=== PATIENT | male | born 1955 | race Caucasian/White ===

== ENCOUNTER → 2022-05-05 | Outpatient (CLI) | payer OTHER, MEDICARE, SELFPAY ==
[2022-05-05 10:53] LABS: Erythrocyte Sedimentation Rate 41 mm/hr (0-20)
[2022-05-05 10:55] LABS: Absolute Lymphocyte Count 3.01 X10^3/uL (0.83-4.51); Absolute Neutrophil Count 4.4 X10^3/uL (2.0-7.7); Basophil# 0.05 X10^3/uL; Basophil% 0.6 % (0-1); Eosinophil# 0.44 X10^3/uL; Eosinophils% 4.9 % (0-5); Hemoglobin 10.8 g/dL (13.0-16.5); Lymphocyte # 3.01 X10^3/ul (0.83-4.51); Lymphocyte % 33.2 % (19-41); Mean Corpuscular Hgb 22.8 pg (27.0-32.0); Mean Corpuscular Volume 76.1 fL (80-94); Mean Platelet Vol. 9.3 fl (6.2-12.0); Monocyte# 1.16 X10^3/uL; Monocyte% 12.8 % (0-10); NRBC Flagged by Analyzer 0 % (0-5); Neutrophil # 4.38 X10^3/uL (2.7-7.7); Neutrophil % 48.3 % (47-70); Platelet Count 429 K/mm3 (150-450); RBC Distribution Width CV 18.3 % (11.6-14.6); RBC Distribution Width SD 49.8 fl (35.1-43.9); Red Blood Count 4.73 M/mm3 (4.6-6.2); White Blood Count 9.1 K/mm3 (4.4-11.0)
[2022-05-05 11:11] LABS: ALB/GLOB Ratio 0.7 RATIO (0.9-2.4); AST(SGOT) 9 U/L (15-37); Alanine Aminotransfer ALT/SGPT 15 U/L (16-61); Albumin, Serum 3.2 g/dL (3.2-5.0); Alkaline Phosphatase 91 U/L (45-117); Anion Gap 6 (5-15); BUN 13 mg/dL (7-18); BUN/Creat Ratio 10.9 RATIO (10-20); Calcium,Total 9.1 mg/dL (8.5-10.1); Chloride 108 mmol/L (98-107); Creatinine, Serum 1.19 mg/dL (0.70-1.30); EST Glomerular Filtration Rate 65 mL/min (>60); Est Glom Filt Rate - Afr Amer 79 mL/min (>60); Globulin 4.9 g/dL (2.2-4.2); Glucose 101 mg/dL (74-106); LDH 161 U/L (87-241); Protein, Total 8.1 g/dL (6.4-8.2); Sodium Level 138 mmol/L (136-145)
[2022-05-08 16:08] LABS: Endomysial Antibody IgA Negative (Negative)
[2022-05-08 17:23] LABS: Immunoglobulin A 305 mg/dL (61-437); t-Transglutaminase IgA <2 U/mL (0-3)
[2022-05-09 16:09] LABS: Albumin 3.2 g/dL (2.9-4.4); Alpha-1-Globulins 0.3 g/dL (0.0-0.4); Alpha-2-Globulins 0.9 g/dL (0.4-1.0); Cytoplasmic Ab (C-ANCA) >1:640 titer (Neg:<1:20); Gamma Globulin 1.6 g/dL (0.4-1.8); Immunoglobulin A 313 mg/dL (61-437); Immunoglobulin G 1537 mg/dL (603-1613); Immunoglobulin M 93 mg/dL (20-172); PROEL- TOTAL PROTEIN 7.3 g/dL (6.0-8.5)
[2022-05-09 17:48] LABS: IMMUNOFIXATION RESULT,S Comment: (.)
[2022-05-09 17:49] LABS: CMV Acute Antibody IgM < 30.0 AU/mL (0.0-29.9); CMV Antibody IgG > 10.00 U/mL (0.00-0.59); Immunoglobulin E 20 IU/mL (6-495); Perinuclear Ab (P-ANCA) <1:20 titer (Neg:<1:20)
[2022-05-09 21:38] LABS: Calprotectin, Stool 431 ug/g (0-120)
[2022-05-11 16:45] LABS: Giardia Lamblia, Stool EIA Negative (Negative); Pancreatic Elastase, Fecal 455 (>200)
== END | disposition home or self-care (01) ==
PROVIDERS: Referring Provider Internal Medicine Gastroenterology; Visit Provider Internal Medicine Gastroenterology
DX: K51.90 Ulcerative colitis, unspecified, without complications (principal); R19.7 Diarrhea, unspecified; K58.9 Irritable bowel syndrome, unspecified
CPT/HCPCS: 36415; 80053; 82653; 82784; 82785; 83516; 83605; 83615; 83630; 83993; 84165; 85025; 85652; 86140; 86255; 86256; 86334; 86644; 86645; 87177; 87209; 87329; 87493; 87506

== ENCOUNTER 2022-05-10 00:05 | Inpatient (IN) | payer OTHER, MEDICARE, SELFPAY ==
[2022-05-10] VITALS (11 sets, daily range): BP systolic 90–113; BP diastolic 53–76; PULSE 66–94; RESP 15–18; TEMP 36.6–37.7; O2SAT 95–98; BMI 25.6; BMI 25.9
[2022-05-10 01:01] LABS: Absolute Lymphocyte Count 3.13 X10^3/uL (0.83-4.51); Absolute Neutrophil Count 5.4 X10^3/uL (2.0-7.7); Basophil# 0.04 X10^3/uL; Basophil% 0.4 % (0-1); Eosinophil# 0.06 X10^3/uL; Eosinophils% 0.6 % (0-5); Hematocrit 33.1 % (40-54); Hemoglobin 9.7 g/dL (13.0-16.5); Lymphocyte # 3.13 X10^3/ul (0.83-4.51); Lymphocyte % 31.7 % (19-41); Mean Corp Hgb Conc 29.3 g/dL (32-36); Mean Corpuscular Hgb 22.3 pg (27.0-32.0); Mean Corpuscular Volume 76.1 fL (80-94); Mean Platelet Vol. 9.6 fl (6.2-12.0); Monocyte# 1.25 X10^3/uL; Monocyte% 12.7 % (0-10); NRBC Flagged by Analyzer 0 % (0-5); Neutrophil # 5.37 X10^3/uL (2.7-7.7); Neutrophil % 54.4 % (47-70); Platelet Count 359 K/mm3 (150-450); RBC Distribution Width CV 17.9 % (11.6-14.6); RBC Distribution Width SD 49.3 fl (35.1-43.9); Red Blood Count 4.35 M/mm3 (4.6-6.2); White Blood Count 9.9 K/mm3 (4.4-11.0)
[2022-05-10] MEDS: Morphine 4 MG/ML Syringe IV (01:12)
[2022-05-10] MEDS: Ondansetron 4 MG/2 ML Vial IV (01:12)
[2022-05-10] MEDS: 0.9% Normal Saline 1,000 ML 1000 ML IV (01:12)
--- NOTE | 2022-05-10 01:14 | EDS_ITS ---
HPI History of Present Illness Chief Complaint: General Illness Informant: patient and spouse/S.O. Narrative Narrative: Patient is a 67-year-old male with history of ulcerative colitis, follows with Dr. Morales, presenting with worsening abdominal pain. He states the pain is in his right lower quadrant. He does have history of prior appendectomy. He has had associated nausea and countless episodes of diarrhea. Denies any significant blood in his stool. Notes that he has having decreased urine output. Had a fever this evening and 1-1.9 per his . Is complaining of cramping abdominal pain. Did not take anything for pain prior to arrival. States this feels like UC flare but more severe. States he has been having blood in his stool. States he was put on new medications by his GI doctor 2 days ago but cannot recall the name.Patient had stool studies on 05/05 which was negative for C. difficile PCR, as well as enteric pathogen panel. He did have positive fecal white blood cell lactoferrin. It appears that patient was started on hydrocortisone enema as well as mesalamine [facility] Medical History (Updated 05/10/22 @ 06:[address] Isis Chavez, DO) Anxiety Benign prostatic hyperplasia CAD (coronary artery disease) Calcification of left carotid artery Cellulitis of right axilla Chronic colitis Chronic left shoulder pain Deafness in left ear Depression Former smoker GERD (gastroesophageal reflux disease) Gout Hyperlipidemia Hypertension Left flank mass Myocardial infarct Opioid use MICKEY (obstructive sleep apnea) Pain in right hand Polyneuropathy, unspecified Primary insomnia Ulcerative (chronic) pancolitis without complications Urinary frequency Xerosis of skin Home Medications aspirin 81 mg tablet,delayed release 81 mg PO DAILY 04/18/22 [History Last Taken Unknown] cholecalciferol (vitamin D3) 25 mcg (1,000 unit) capsule 25 mcg PO DAILY Check with primary doctor 04/18/22 [History Last Taken Unknown] clopidogrel 75 mg tablet 75 mg PO DAILY 04/18/22 [History Last Taken Unknown] diazepam 5 mg tablet 5 mg PO .QID PRN Anxiety 04/18/22 [History Last Taken Unknown] indomethacin 50 mg capsule 50 mg PO BID PRN Gout 04/18/22 [History Last Taken Unknown] mesalamine 1.2 gram tablet,delayed release (Lialda) 2.4 g PO BID Check with primary doctor 04/18/22 [History Last Taken Unknown] omeprazole 40 mg capsule,delayed release 40 mg PO DAILY PRN STOMACH ACID 04/18/22 [History Last Taken Unknown] rosuvastatin 5 mg tablet 5 mg PO DAILY Check with primary doctor 04/18/22 [History Last Taken Unknown] zolpidem 10 mg tablet 10 mg PO QHS Check with primary doctor 04/18/22 [History Last Taken Unknown] diphenoxylate-atropine 2.5 mg-0.025 mg tablet (Lomotil) 1 tab PO BID PRN diarrhea #60 tabs 05/05/22 [Rx Last Taken Unknown] hydrocortisone 100 mg/60 mL enema 100 mg [place] QHS Check with primary doctor 05/10/22 [History Last Taken Unknown] Allergy/AdvReac Type Severity Reaction Status Date / Time metronidazole Allergy Intermediate hives Verified 05/10/22 00:11 tetracycline Allergy Intermediate unk Verified 05/10/22 00:11 tramadol Allergy Intermediate Shortness Verified 05/10/22 00:11 of breath Family History (Updated 05/10/22 @ 03:[address] Ava Ledezma MD) Mother Heart disease Father IBD (inflammatory bowel disease) Surgical History (Updated 05/10/22 @ 05:21 by Elli Johnston) History of appendectomy History of coronary artery bypass graft x 3 History of coronary artery stent placement Social History (Updated 05/10/22 @ 03:[address] Ava Ledezma MD) household members: spouse Smoking Status: Former smoker how long ago did patient quit smoking: Quit ~ 15 years prior, smoked 1 ppd since teen until quit. alcohol intake: current alcohol intake frequency: a few times a month substance use type: does not use ROS ROS ED Constitutional Constitutional ED: Reports chills and fever(s) Eyes Eyes: Denies change in vision ENT ENT ED: Denies rhinorrhea or sore throat Cardiovascular Cardiovascular: Denies chest pain Respiratory/Chest Respiratory/Chest: Denies cough Gastrointestinal Gastrointestinal: Reports abdominal pain, diarrhea, nausea and other Details: blood in stool ; Denies vomiting Genitourinary Genitourinary ED: Denies dysuria or hematuria Musculoskeletal Musculoskeletal: Denies arthralgias or myalgias Integumentary Denies rash Neurologic Neurologic: Denies headache(s) or weakness Psychiatric Psychiatric: Denies anxiety Hematologic/Lymphatic Hematologic/Lymphatic: Denies easy bleeding or easy bruising EXAM Physical Exam Const Vital Signs: 05/10/22 00:06 05/10/22 00:14 05/10/22 00:11 Temperature 99.8 F H 98.1 F Temperature Source Temporal Temporal Pulse Rate 94 94 Respiratory Rate 16 16 Blood Pressure 96/57 L 96/57 L Blood Pressure Mean 70 70 Pulse Ox 98 98 Oxygen Delivery Method Room Air Room Air 05/10/22 02:05 Temperature Temperature Source Pulse Rate 78 Respiratory Rate 15 Blood Pressure 100/60 Blood Pressure Mean 73 Pulse Ox 97 Oxygen Delivery Method Room Air Positive well nourished and well developed Constitutional Narrative: Uncomfortable appearing General Appearance ED: well developed and pallor HEENT Reports dry mucous membranes Mouth ED: Yes dry mucous membranes Mouth: dry mucous membranes Eyes PERRL Neck supple Chest Wall inspection of chest normal Resp normal respiratory effort and clear to auscultation bilaterally Cardio regular rate, regular rhythm and no murmurs GI non-distended GI Narrative: Tenderness in the right lower quadrant Auscultation: hypoactive bowel sounds Back/Spine no CVA tenderness Extremity normal to inspection Neuro oriented x3 Sensorium / Orientation: alert Motor Exam: Negative for general weakness Psych mental status grossly normal Skin no rashes or lesions noted and no wounds General Skin Exam: pallor MDM MDM MDM Narrative Medical decision making narrative: Patient evaluated for worsening diarrhea, right lower quadrant pain and nausea. Patient has an extensive history of ulcerative colitis and follows with Dr. Morales. He is not currently on any Biologics. Presentation is consistent with an ulcerative colitis flare. Patient is given 2 doses of IV pain medication in the ER as well as some IV Zofran. He is given IV fluids as he does have soft blood pressures. Hemoglobin is low at 9.7 and CBC is consistent with a microcytic anemia. His white blood cell count is normal. Patient does have a one-point drop in his hemoglobin compared to 3 days ago. He states he is having blood in his stool. CMP is stable and his lactate is normal at 1.2. Lipase is normal. Urinalysis not consistent with infection. Given his lack of white count and extensive history of ulcerative colitis deferred imaging until after d iscussion with his general service technician, Dr. Morales. He do not feel that emergent imaging was indicated at this time. Patient is given IV hydrocortisone for presumed UC flare in the emergency room and then started scheduled every 8 hours per recommendation of GI. Patient is admitted to hospital service with GI and consult. Patient and are agreeable this plan of care. While patient does maintain low blood pressures in the emergency room he has good mentation, no significant bleeding and no corresponding tachycardia. Hospitalist is made aware. Lab Data Attestation: I reviewed the patient's lab results. Labs: Laboratory Results - last 24 hr 05/10/22 05/10/22 05/10/22 00:50 00:50 00:50 WBC 9.9 RBC 4.35 L Hgb 9.7 L Hct 33.1 L MCV 76.1 L MCH 22.3 L MCHC 29.3 L RDW Std Deviation 49.3 H RDW Coeff of Miguel 17.9 H Plt Count 359 MPV 9.6 Immature Gran % (Auto) 0.200 Neut % (Auto) 54.4 Lymph % (Auto) 31.7 [place] % (Auto) 12.7 H Eos % (Auto) 0.6 Baso % (Auto) 0.4 Absolute Neuts (auto) 5.4 Absolute Lymphs (auto) 3.13 Nucleated RBC % 0 ESR Sodium 138 Potassium 3.9 Chloride 106 Carbon Dioxide 26.0 Anion Gap 6 BUN 13 Creatinine 1.22 Estim Creat Clear Calc 57.62 Est GFR (MDRD) Af Amer 76 Est GFR (MDRD) Non-Af 63 BUN/Creatinine Ratio 10.7 Glucose 113 H Lactic Acid 1.2 Calcium 9.6 Total Bilirubin 0.20 AST 10 L ALT 14 L Alkaline Phosphatase 80 C-React Prot Ext Range Total Protein 7.4 Albumin 3.0 L Globulin 4.4 H Albumin/Globulin Ratio 0.7 L Lipase 84 Urine Color Urine Clarity Urine pH Ur Specific [place] Urine Protein Urine Glucose (UA) Urine Ketones Urine Occult Blood Urine Nitrite Urine Bilirubin Urine Urobilinogen Ur Leukocyte Esterase Urine RBC Urine WBC Ur Squamous Epith Cells Urine Bacteria Urine Mucus 05/10/22 05/10/22 05/10/22 00:50 00:50 01:05 WBC RBC Hgb Hct MCV MCH MCHC RDW Std Deviation RDW Coeff of Miguel Plt Count MPV Immature Gran % (Auto) Neut % (Auto) Lymph % (Auto) [place] % (Auto) Eos % (Auto) Baso % (Auto) Absolute Neuts (auto) Absolute Lymphs (auto) Nucleated RBC % ESR 48 H Sodium Potassium Chloride Carbon Dioxide Anion Gap BUN Creatinine Estim Creat Clear Calc Est GFR (MDRD) Af Amer Est GFR (MDRD) Non-Af BUN/Creatinine Ratio Glucose Lactic Acid Calcium Total Bilirubin AST ALT Alkaline Phosphatase C-React Prot Ext Range 49.00 H Total Protein Albumin Globulin Albumin/Globulin Ratio Lipase Urine Color Yellow Urine Clarity Clear Urine pH 5.0 Ur Specific [place] 1.020 Urine Protein Negative Urine Glucose (UA) Normal Urine Ketones Negative Urine Occult Blood Negative Urine Nitrite Negative Urine Bilirubin Negative Urine Urobilinogen Normal Ur Leukocyte Esterase Negative Urine RBC 0 SEEN Urine WBC 0 SEEN Ur Squamous Epith Cells 0 SEEN Urine Bacteria 0 SEEN Urine Mucus 0 SEEN Discharge Plan Dx/Rx/DC Orders Clinical Impression: Ulcerative colitis, Anemia Disposition Disposition: Acute Care Hospital [facility]
[2022-05-10 01:18] LABS: ALB/GLOB Ratio 0.7 RATIO (0.9-2.4); AST(SGOT) 10 U/L (15-37); Alanine Aminotransfer ALT/SGPT 14 U/L (16-61); Alkaline Phosphatase 80 U/L (45-117); Anion Gap 6 (5-15); BUN 13 mg/dL (7-18); BUN/Creat Ratio 10.7 RATIO (10-20); Calcium,Total 9.6 mg/dL (8.5-10.1); Chloride 106 mmol/L (98-107); Creatinine, Serum 1.22 mg/dL (0.70-1.30); EST Glomerular Filtration Rate 63 mL/min (>60); Est Glom Filt Rate - Afr Amer 76 mL/min (>60); Estimated Creatinine Clearance 57.62 ml/min; Globulin 4.4 g/dL (2.2-4.2); Glucose 113 mg/dL (74-106); Lipase 84 U/L (73-393); Potassium 3.9 mmol/L (3.5-5.1); Protein, Total 7.4 g/dL (6.4-8.2); Sodium Level 138 mmol/L (136-145)
[2022-05-10 01:19] LABS: Bacteria 0 SEEN /hpf (None Seen); Mucous, Urine 0 SEEN /hpf (<or=2+); Red Blood Cells-Urine 0 SEEN /hpf (0-5); Squamous Epithelial Cells - UA 0 SEEN /hpf (0-5); White Blood Cells 0 SEEN /hpf (0-5)
[2022-05-10 01:20] LABS: Color, Urine Yellow (Yellow); Glucose, Dipstick Normal (Normal); Ketone-Dipstick Negative (Negative); Leukocyte Esterase-Dipstick Negative /ul (Negative); Nitrite-Dipstick Negative (Negative); Occult Blood-Urine Negative /ul (Negative); Protein-Dipstick Negative (Negative); Urine Bilirubin Dipstick Negative (Negative); Urine Clarity Clear (Clear); Urine Urobilinogen Normal (Normal)
[2022-05-10 01:25] LABS: Lactic Acid 1.2 mmol/L (0.4-1.9)
[2022-05-10] MEDS: HYDROmorphone 0.5 MG/0.5 ML SYRINGE IV ×4 (02:20→20:41)
--- NOTE | 2022-05-10 02:53 | HP.PCM.HOS_ITS ---
HPI - General General Date of Admission: 05/10/22 Date of Service: 05/10/22 Chief Complaint: Abdominal pain. HPI Narrative The patient is a 67 y/o M w/ PMHx: Chronic anemia, CAD s/p CABG x 3, HTN, HLD, Anxiety, GERD, BPH, Gout, MICKEY, Ulcerative Colitis following w/ Dr. Morales with recent + LF WBC stool study, negative cdiff, negative enteric pathogens with recent start on mesalamine and hydrocortisone enemas with initially improvement in his symptoms for at least the last couple days however on a.m. on day prior to presentation he had onset of worsening symptoms presenting to the [facility] ED on 05/10/22 with worsening cramping abdominal pain, rated 10/10 in severity, worse in the RLQ but also more notable RUQ also, similar to prior UC flare but notes more severe than prior with reported blood in his stools with nausea without emesis and elevated temperature at home prompting ED evaluation. Patient notes worsening pain with cramping when he has onset diarrhea and some temporary improvement following diarrheal episodes. He reports have associated fevers, chills. Work-up in the ED included T99.8 With most recent repeat 98.1, heart ra te 94, BP 96/57, respiratory rate 16, 98% on room air, CBC with WC 9.9, hemoglobin 9.7, platelets 359 without marked shift, CMP with glucose 113, lactic acid 1.2 otherwise hepatic profile unremarkable, lipase 84, urinalysis unremarkable CBC with WC 7.1, hemoglobin 7.2 CT of the brain with no acute i ntracranial hemorrhage or depressed calvarial fracture. In the ED patient administered Zofran, morphine and normal saline bolus as well as Hydrocortisone 100 mg IV x 1 per GI request. GI recommended against repeat CT imaging at this time pending their evaluation. [facility] Medical History Anxiety Benign prostatic hyperplasia CAD (coronary artery disease) Calcification of left carotid artery Cellulitis of right axilla Chronic colitis Chronic left shoulder pain GERD (gastroesophageal reflux disease) Gout Hyperlipidemia Hypertension Left flank mass Opioid use MICKEY (obstructive sleep apnea) Pain in right hand Polyneuropathy, unspecified Primary insomnia Ulcerative (chronic) pancolitis without complications Urinary frequency Xerosis of skin Home Medications aspirin 81 mg tablet,delayed release 81 mg PO DAILY 04/18/22 [History Last Taken Unknown] cholecalciferol (vitamin D3) 25 mcg (1,000 unit) capsule 25 mcg PO DAILY 04/18/22 [History Last Taken Unknown] clopidogrel 75 mg tablet 75 mg PO DAILY 04/18/22 [History Last Taken Unknown] diazepam 5 mg tablet 5 mg PO .QID PRN Anxiety 04/18/22 [History Last Taken Unknown] indomethacin 50 mg capsule 50 mg PO BID PRN Gout 04/18/22 [History Last Taken Unknown] mesalamine 1.2 gram tablet,delayed release (Lialda) 2.4 g PO DAILY 04/18/22 [History Last Taken Unknown] omeprazole 40 mg capsule,delayed release 40 mg PO DAILY PRN STOMACH ACID 04/18/22 [History Last Taken Unknown] rosuvastatin 5 mg tablet 5 mg PO DAILY 04/18/22 [History Last Taken Unknown] zolpidem 10 mg tablet 10 mg PO DAILY 04/18/22 [History Last Taken Unknown] diphenoxylate-atropine 2.5 mg-0.025 mg tablet (Lomotil) 1 tab PO BID PRN diarrhea #60 tabs 05/05/22 [Rx Last Taken Unknown] hydrocortisone 100 mg/60 mL enema 100 mg [place] QHS 05/10/22 [History Last Taken Unknown] hydrocortisone 100 mg/60 mL enema mg [place] 05/10/22 [History Last Taken Unknown] Allergy/AdvReac Type Severity Reaction Status Date / Time metronidazole Allergy Intermediate hives Verified 05/10/22 00:11 tetracycline Allergy Intermediate unk Verified 05/10/22 00:11 tramadol Allergy Intermediate Shortness Verified 05/10/22 00:11 of breath Family History (Updated 05/10/22 @ 03:[address] Ava Ledezma MD) Mother Heart disease Father IBD (inflammatory bowel disease) Surgical History History of appendectomy History of coronary artery bypass graft x 3 Social History (Updated 05/10/22 @ 03:[address] Ava Ledezma MD) household members: spouse Smoking Status: Former smoker how long ago did patient quit smoking: Quit ~ 15 years prior, smoked 1 ppd since teen until quit. alcohol intake: current alcohol intake frequency: a few times a month substance use type: does not use ROS ROS Narrative Admission Review of Systems: CONSTITUTIONAL: No weight loss, + fever, chills, weakness or fatigue. HEENT: Eyes: No visual loss, blurred vision, double vision or yellow sclerae. Ears, Nose, Throat: No hearing loss, sneezing, congestion, runny nose or sore throat. SKIN: No rash or itching, lesions, wounds. CARDIOVASCULAR: No chest pain, chest pressure or chest discomfort, palpitations, edema, orthopnea, syncopal events. RESPIRATORY: No shortness of breath, cough or sputum, wheezing, hemoptysis. GASTROINTESTINAL: + anorexia, nausea without vomiting, diarrhea, abdominal pain/cramping, bright red blood mixed with stools, no melanotic stools. GENITOURINARY: No dysuria, frequency, urgency or retention. NEUROLOGICAL: No headache, dizziness, syncope, paralysis, ataxia, numbness or tingling in the extremities, focal weakness, change in bowel or bladder control, seizure. MUSCULOSKELETAL: No muscle, back pain, joint pain or stiffness. HEMATOLOGIC: + anemia, bleeding or bruising. LYMPHATICS: No enlarged nodes. No history of splenectomy. PSYCHIATRIC: + history of depression or anxiety. ENDOCRINOLOGIC: No reports of sweating, cold or heat intolerance. No polyuria or polydipsia. ALLERGIES: No history of asthma, hives, eczema or rhinitis. Vital Signs Vital Signs Vital Signs: 05/10/22 00:06 05/10/22 00:14 05/10/22 00:11 Temperature 99.8 F H 98.1 F Temperature Source Temporal Temporal Pulse Rate 94 94 Respiratory Rate 16 16 Blood Pressure 96/57 L 96/57 L Blood Pressure Mean 70 70 Pulse Ox 98 98 Oxygen Delivery Method Room Air Room Air 05/10/22 02:05 Temperature Temperature Source Pulse Rate 78 Respiratory Rate 15 Blood Pressure 100/60 Blood Pressure Mean 73 Pulse Ox 97 Oxygen Delivery Method Room Air Weight Weight: 168 lb 6.025 oz Body Mass Index (BMI) 25.6 Physical Exam Narrative Physical Examination: General: Awake, alert, oriented x 3 and cooperative, laying in the ED bed, severely uncomfortable appearing. Skin: Normal color, normal turgor, no icterus, no cyanosis. HEENT: AT/NC, EOMI, PERRLA, dry MM, no carotid bruits or JVD noted. Lungs: Mildly diminished, greater bases, appropriate effort, no rales, ronchi or wheezing. Heart: Regular rate and rhythm; no gallop, rub audible. Abdomen: Soft, significant generalized discomfort however worse in the right upper quadrant and right lower quadrant with voluntary guarding, no obvious distention, hyperactive bowel sounds, difficult to assess HSM secondary to pain with evaluation. Extremities: No cyanosis, clubbing, or edema. Neurological: Patient awake, alert, oriented as noted, cognitive function intact; pupils equally reactive to light and accommodation, cranial nerves II- XII grossly normal, moving all 4 extremities, no focal deficits, strength severely global decrease secondary to acute presentation Psychiatric: Affect appears uncomfortable appearing, periods of severe pain preventing the patient from talking, no acute evidence of depressive or anxiety feelings but underlying history of anxiety. Results Lab / Micro Data Result Diagrams: 05/10/22 00:50 05/10/22 00:50 Labs: Laboratory Results - last 24 hr 05/10/22 00:50: WBC 9.9, RBC 4.35 L, Hgb 9.7 L, Hct 33.1 L, MCV 76.1 L, MCH 22.3 L, MCHC 29.3 L, RDW Std Deviation 49.3 H, RDW Coeff of Miguel 17.9 H, Plt Count 359, MPV 9.6, Immature Gran % (Auto) 0.200, Neut % (Auto) 54.4, Lymph % (Auto) 31.7, [place] % (Auto) 12.7 H, Eos % (Auto) 0.6, Baso % (Auto) 0.4, Absolute Neuts (auto) 5.4, Absolute Lymphs (auto) 3.13, Nucleated RBC % 0 05/10/22 00:50: Sodium 138, Potassium 3.9, Chloride 106, Carbon Dioxide 26.0, Anion Gap 6, BUN 13, Creatinine 1.22, Estim Creat Clear Calc 57.62, Est GFR (MDRD) Af Amer 76, Est GFR (MDRD) Non-Af 63, BUN/Creatinine Ratio 10.7, Glucose 113 H, Calcium 9.6, Total Bilirubin 0.20, AST 10 L, ALT 14 L, Alkaline Phosphatase 80, Total Protein 7.4, Albumin 3.0 L, Globulin 4.4 H, Albumin/Glob ulin Ratio 0.7 L, Lipase 84 05/10/22 00:50: Lactic Acid 1.2 05/10/22 01:05: Urine Color Yellow, Urine Clarity Clear, Urine pH 5.0, Ur Specific [place] 1.020, Urine Protein Negative, Urine Glucose (UA) Normal, Urine Ketones Negative, Urine Occult Blood Negative, Urine Nitrite Negative, Urine Bilirubin Negative, Urine Urobilinogen Normal, Ur Leukocyte Esterase Negative, Urine RBC 0 SEEN, Urine WBC 0 SEEN, Ur Squamous Epith Cells 0 SEEN, Urine Bacteria 0 SEEN, Urine Mucus 0 SEEN Assessment & Plan Assessment/Plan (1) Ulcerative colitis: PLAN: Plan The patient is a 67 y/o M w/ PMHx: Chronic anemia, CAD s/p CABG x 3, HTN, HLD, Anxiety, GERD, BPH, Gout, MICKEY, Ulcerative Colitis following w/ Friend with recent + LF WBC stool study, negative cdiff, negative enteric pathogens with start on mesalamine and hydrocortisone enemas 2 days prior to current presentation who presents to the [facility] ED on 05/10/22 with worsening cramping abdominal pain, worse in the RLQ, similar to prior UC flare but notes more severe than prior with reported blood in his stools with nausea without emesis and elevated temperature at home prompting ED evaluation. #1. Suspected acute ulcerative colitis flare with acute on chronic microcytic anemia suspected secondary to acute blood loss: Will admit to medical surgical floor, will continue to trend H&H, will obtain ESR and CRP level, monitor for worsening hypotension, consult gastroenterology who is been following with the patient, will initiate on IV Zosyn antibiotic therapy pending GI evaluation to b e cautious and continue hydrocortisone 100 mg IV q 8 hours per recommendation gastroenterology, n.p.o. status until clinically improving, maintain on IV PPI, GI recommended against repeat CT imaging thus will defer until their evaluation. #2. CAD: Status post CABG x 3, given #1 with acute on chronic blood loss anemia secondary to GI losses with suspected UC flare we will temporarily hold patient aspirin and Plavix, resume once clinically improved or cleared per GI, maintain on statin therapy, not on beta-caroline nor NORMAN inhibitor likely secondary to hypotension. #3. Hypertension: Noted in history however patient is not on any hypertensive agents, suspect patient likely has had hypotension therefore regimen has been discontinued, closely monitor. #4. Hyperlipidemia: We will continue patient on statin therapy. #5. Anxiety: We will continue patient home diazepam regimen with hold pa rameters given hypotension. #6. BPH: Per current list not on regimen, will clarify and continue if appropriate. #7. MICKEY: Patient notes he was previously tested and was told he had moderate sleep apnea but reports that there was never any follow through with ordering a CPAP machine. Discussed that he would benefit from follow-up and would be able to at least monitor for any desaturations during his admission with requested trending pulse ox #8. DVT prophylaxis: SCDs, defer chemoprophylaxis given #1. Charges/Coding Visit Charges Inpatient E&M: 28805 Init Hosp L3
[2022-05-10 03:14] LABS: Erythrocyte Sedimentation Rate 48 mm/hr (0-20)
[2022-05-10] MEDS: Hydrocortisone Sod Succinate 100 MG/2 ML Vial IV ×2 (03:44→13:59)
[2022-05-10] MEDS: 0.9% Normal Saline 1,000 ML 125 ML IV ×3 (05:36→21:50)
[2022-05-10] MEDS: 0.9% Saline Lock 10 ML Syringe IV ×2 (05:43→20:40)
[2022-05-10 05:53] LABS: Absolute Lymphocyte Count 2.71 X10^3/uL (0.83-4.51); Absolute Neutrophil Count 6.8 X10^3/uL (2.0-7.7); Basophil# 0.06 X10^3/uL; Basophil% 0.6 % (0-1); Eosinophil# 0.05 X10^3/uL; Eosinophils% 0.5 % (0-5); Hematocrit 30.3 % (40-54); Hemoglobin 9.1 g/dL (13.0-16.5); Lymphocyte # 2.71 X10^3/ul (0.83-4.51); Lymphocyte % 25.8 % (19-41); Mean Corpuscular Volume 76.7 fL (80-94); Mean Platelet Vol. 9.5 fl (6.2-12.0); Monocyte# 0.88 X10^3/uL; Monocyte% 8.4 % (0-10); NRBC Flagged by Analyzer 0 % (0-5); Neutrophil # 6.75 X10^3/uL (2.7-7.7); Neutrophil % 64.2 % (47-70); Platelet Count 325 K/mm3 (150-450); RBC Distribution Width CV 18.1 % (11.6-14.6); RBC Distribution Width SD 49.8 fl (35.1-43.9); Red Blood Count 3.95 M/mm3 (4.6-6.2); White Blood Count 10.5 K/mm3 (4.4-11.0)
[2022-05-10 06:24] LABS: ALB/GLOB Ratio 0.7 RATIO (0.9-2.4); AST(SGOT) 11 U/L (15-37); Alanine Aminotransfer ALT/SGPT 14 U/L (16-61); Albumin, Serum 2.8 g/dL (3.2-5.0); Alkaline Phosphatase 76 U/L (45-117); Anion Gap 7 (5-15); BUN 11 mg/dL (7-18); BUN/Creat Ratio 10.9 RATIO (10-20); Calcium,Total 8.4 mg/dL (8.5-10.1); Chloride 110 mmol/L (98-107); Creatinine, Serum 1.01 mg/dL (0.70-1.30); EST Glomerular Filtration Rate 79 mL/min (>60); Est Glom Filt Rate - Afr Amer 95 mL/min (>60); Globulin 4.2 g/dL (2.2-4.2); Glucose 118 mg/dL (74-106); Potassium 4.2 mmol/L (3.5-5.1); Sodium Level 139 mmol/L (136-145)
--- NOTE | 2022-05-10 12:00 | CASEMGMT ---
RN CM Face to Face with patient for initial transition planning/care coordination assessment. RN CM introduced self and role at [facility]. Patient lying in bed, alert and oriented. Patient willing to participate in assessment and is able to answer all questions appropriately. Care providers, pharmacy, and demographics verified. Patient wishes to discharge home, denies need for home health at this time. Patient states he has no further needs or concerns at this time. CM to follow for discharge planning needs that may arise. PCP: Brittany Santos Specialists: Friend, GI Preferred Pharmacy: [facility] Insurance: CARO Smith Prescription Benefit: yes Living Will/HPOA: yes, Caitie Miranda LNOK: Living Arrangements: Patient lives with in a single story home with no steps. Patient states he is independent at home. Transportation: self, DME/HHC: Patient has shower chair and BSC at home. Patient denies previous SNF or HHC. Disposition Plan: Patient to discharge home with family support and follow-up plans in place. Mikaela BARRAGANN, RN, CM
[2022-05-10] MEDS: sulfaSALAzine 500 MG Tablet 1000 MG PO ×2 (16:35→21:49)
[2022-05-10] MEDS: Hydrocortisone 100 MG/60 ML ENEMA RC ×2 (16:35→21:49)
[2022-05-10] MEDS: Dicyclomine 10 MG Capsule 20 MG PO (16:36)
--- NOTE | 2022-05-10 16:56 | CON.PCM_ITS ---
Assessment & Plan Assessment/Plan (1) Ulcerative colitis: PLAN: He was started on hydrocortisone 100 mg IV every 12 hours. I will switch him to Solu-Medrol 125 mg IV every 6 to 8 hours. We will recheck an ESR, CRP. We will also initiate hydrocortisone enemas, dicyclomine and continue pain medicine. (2) Anemia: HPI Consult Data Date of Consult: 05/10/22 HPI Narrative Reason for Consultation: ulcerative colitis HPI Narrative: KENDRA CUMMINS, is a 67 M who presents to the ED with worsening abdominal pain diarrhea and lower GI bleed. He was diagnosed with ulcerative colitis approximately 15 years ago. He was maintained on lialda which was effective until insurance made him change. Continues to take this but it is not working, prednisone recently tapered as it was not working. IV use of prednisone causes him to feel like he?s having a heart attack. He was started on Remicade approximately a year prior with initial response, but had a return of symptoms with taper of prednisone and Entyvio then pursued, but not started as his family had concerns. UC diagnosis received many years ago when he presented with abdominal pain/cramping, diarrhea with frequency in the day and night, urgency and incontinence and bloody stools. Weight loss of approximately 50lbs since early 2019. Colonoscopy with diagnosis of left sided UC. He has been hospitaliz ed four times in the last two years r/t UC; three times with sepsis and once for symptoms management. Denies abdominal surgery, history of stenosis/blockage. He has attempted mesalamine (expensive), remicade (ineffective). I gave him hydrocortisone enemas and budesonide MMX as an outpatient. However he cannot afford the budesonide . He did say that the hydrocortisone enemas were helping up until yesterday when they stopped working. [facility]LY [facility] Medical History (Updated 05/10/22 @ 06:[address] Isis Chavez, DO) Anxiety Benign prostatic hyperplasia CAD (coronary artery disease) Calcification of left carotid artery Cellulitis of right axilla Chronic colitis Chronic left shoulder pain Deafness in left ear Depression Former smoker GERD (gastroesophageal reflux disease) Gout Hyperlipidemia Hypertension Left flank mass Myocardial infarct Opioid use MICKEY (obstructive sleep apnea) Pain in right hand Polyneuropathy, unspecified Primary insomnia Ulcerative (chronic) pancolitis without complications Urinary frequency Xerosis of skin Home Medications aspirin 81 mg tablet,delayed release 81 mg PO DAILY 04/18/22 [History Last Taken Unknown] cholecalciferol (vitamin D3) 25 mcg (1,000 unit) capsule 25 mcg PO DAILY Check with primary doctor 04/18/22 [History Last Taken Unknown] clopidogrel 75 mg tablet 75 mg PO DAILY 04/18/22 [History Last Taken Unknown] diazepam 5 mg tablet 5 mg PO .QID PRN Anxiety 04/18/22 [History Last Taken Unknown] indomethacin 50 mg capsule 50 mg PO BID PRN Gout 04/18/22 [History Last Taken Unknown] mesalamine 1.2 gram tablet,delayed release (Lialda) 2.4 g PO BID Check with primary doctor 04/18/22 [History Last Taken Unknown] omeprazole 40 mg capsule,delayed release 40 mg PO DAILY PRN STOMACH ACID 04/18/22 [History Last Taken Unknown] rosuvastatin 5 mg tablet 5 mg PO DAILY Check with primary doctor 04/18/22 [History Last Taken Unknown] zolpidem 10 mg tablet 10 mg PO QHS Check with primary doctor 04/18/22 [History Last Taken Unknown] diphenoxylate-atropine 2.5 mg-0.025 mg tablet (Lomotil) 1 tab PO BID PRN diarrhea #60 tabs 05/05/22 [Rx Last Taken Unknown] hydrocortisone 100 mg/60 mL enema 100 mg OK QHS Check with primary doctor 05/10/22 [History Last Taken Unknown] Allergy/AdvReac Type Severity Reaction Status Date / Time metronidazole Allergy Intermediate hives Verified 05/10/22 00:11 tetracycline Allergy Intermediate unk Verified 05/10/22 00:11 tramadol Allergy Intermediate Shortness Verified 05/10/22 00:11 of breath Family History (Updated 05/10/22 @ 03:[address] Ava Ledezma MD) Mother Heart disease Father IBD (inflammatory bowel disease) Surgical History (Updated 05/10/22 @ 05:21 by Elli Johnston) History of appendectomy History of coronary artery bypass graft x 3 History of coronary artery stent placement Social History (Updated 05/10/22 @ 03:[address] Ava Ledezma MD) household members: spouse Smoking Status: Former smoker how long ago did patient quit smoking: Quit ~ 15 years prior, smoked 1 ppd since teen until quit. alcohol intake: current alcohol intake frequency: a few times a month substance use type: does not use ROS ROS Narrative Admission Review of Systems: CONSTITUTIONAL: No weight loss, + fever, chills, weakness or fatigue. HEENT: Eyes: No visual loss, blurred vision, double vision or yellow sclerae. Ears, Nose, Throat: No hearing loss, sneezing, congestion, runny nose or sore throat. SKIN: No rash or itching, lesions, wounds. CARDIOVASCULAR: No chest pain, chest pressure or chest discomfort, palpitations, edema, orthopnea, syncopal events. RESPIRATORY: No shortness of breath, cough or sputum, wheezing, hemoptysis. GASTROINTESTINAL: + anorexia, nausea without vomiting, diarrhea, abdominal pain/cramping, bright red blood mixed with stools, no melanotic stools. GENITOURINARY: No dysuria, frequency, urgency or retention. NEUROLOGICAL: No headache, dizziness, syncope, paralysis, ataxia, numbness or tingling in the extremities, focal weakness, change in bowel or bladder control, seizure. MUSCULOSKELETAL: No muscle, back pain, joint pain or stiffness. HEMATOLOGIC: + anemia, bleeding or bruising. LYMPHATICS: No enlarged nodes. No history of splenectomy. PSYCHIATRIC: + history of depression or anxiety. ENDOCRINOLOGIC: No reports of sweating, cold or heat intolerance. No polyuria or polydipsia. ALLERGIES: No history of asthma, hives, eczema or rhinitis. Lab / Micro Data Result Diagrams: 05/10/22 05:45 05/10/22 05:45 Labs: Laboratory Results - last 24 hr 05/10/22 00:50: WBC 9.9, RBC 4.35 L, Hgb 9.7 L, Hct 33.1 L, MCV 76.1 L, MCH 22.3 L, MCHC 29.3 L, RDW Std Deviation 49.3 H, RDW Coeff of Miguel 17.9 H, Plt Count 359, MPV 9.6, Immature Gran % (Auto) 0.200, Neut % (Auto) 54.4, Lymph % (Auto) 31.7, [place] % (Auto) 12.7 H, Eos % (Auto) 0.6, Baso % (Auto) 0.4, Absolute Neuts (auto) 5.4, Absolute Lymphs (auto) 3.13, Nucleated RBC % 0 05/10/22 00:50: Sodium 138, Potassium 3.9, Chloride 106, Carbon Dioxide 26.0, Anion Gap 6, BUN 13, Creatinine 1.22, Estim Creat Clear Calc 57.62, Est GFR (MDRD) Af Amer 76, Est GFR (MDRD) Non-Af 63, BUN/Creatinine Ratio 10.7, Glucose 113 H, Calcium 9.6, Total Bilirubin 0.20, AST 10 L, ALT 14 L, Alkaline Phosphatase 80, Total Protein 7.4, Albumin 3.0 L, Globulin 4.4 H, Albumin/Globulin Ratio 0.7 L, Lipase 84 05/10/22 00:50: Lactic Acid 1.2 05/10/22 00:50: ESR 48 H 05/10/22 00:50: C-React Prot Ext Range 49.00 H 05/10/22 01:05: Urine Color Yellow, Urine Clarity Clear, Urine pH 5.0, Ur Specific [place] 1.020, Urine Protein Negative, Urine Glucose (UA) Normal, Urine Ketones Negative, Urine Occult Blood Negative, Urine Nitrite Negative, Urine Bilirubin Negative, Urine Urobilinogen Normal, Ur Leukocyte Esterase Negative, Urine RBC 0 SEEN, Urine WBC 0 SEEN, Ur Squamous Epith Cells 0 SEEN, Urine Bacteria 0 SEEN, Urine Mucus 0 SEEN 05/10/22 05:45: WBC 10.5, RBC 3.95 L, Hgb 9.1 L, Hct 30.3 L, MCV 76.7 L, MCH 23.0 L, MCHC 30.0 L, RDW Std Deviation 49.8 H, RDW Coeff of Miguel 18.1 H, Plt Count 325, MPV 9.5, Immature Gran % (Auto) 0.500, Neut % (Auto) 64.2, Lymph % (Auto) 25.8, [place] % (Auto) 8.4, Eos % (Auto) 0.5, Baso % (Auto) 0.6, Absolute Neuts (auto) 6.8, Absolute Lymphs (auto) 2.71, Nucleated RBC % 0 05/10/22 05:45: Sodium 139, Potassium 4.2, Chloride 110 H, Carbon Dioxide 22.0, Anion Gap 7, BUN 11, Creatinine 1.01, Estim Creat Clear Calc 69.60, Est GFR (MDRD) Af Amer 95, Est GFR (MDRD) Non-Af 79, BUN/Creatinine Ratio 10.9, Glucose 118 H, Calcium 8.4 L, Total Bilirubin 0.20, AST 11 L, ALT 14 L, Alkaline Phosphatase 76, Total Protein 7.0, Albumin 2.8 L, Globulin 4.2, Albumin/Globulin Ratio 0.7 L
[2022-05-10] MEDS: Diphenoxylate/Atrop 1 Tablet PO (20:40)
[2022-05-10] MEDS: Zolpidem Tartrate 5 MG Tablet PO (21:49)
[2022-05-10] MEDS: oxyCODONE 5 MG Tablet PO (22:17)
[2022-05-11] VITALS (7 sets, daily range): BP systolic 96–109; BP diastolic 64–82; PULSE 61–82; RESP 16–18; TEMP 36.6–36.9; O2SAT 94–100
[2022-05-11 04:17] LABS: Absolute Lymphocyte Count 2.31 X10^3/uL (0.83-4.51); Basophil# 0.01 X10^3/uL; Basophil% 0.2 % (0-1); Eosinophil# 0.04 X10^3/uL; Eosinophils% 0.6 % (0-5); Hematocrit 29.7 % (40-54); Hemoglobin 8.5 g/dL (13.0-16.5); Lymphocyte # 2.31 X10^3/ul (0.83-4.51); Lymphocyte % 35.4 % (19-41); Mean Corp Hgb Conc 28.6 g/dL (32-36); Mean Corpuscular Hgb 22.1 pg (27.0-32.0); Mean Corpuscular Volume 77.3 fL (80-94); Mean Platelet Vol. 10.1 fl (6.2-12.0); Monocyte# 1.13 X10^3/uL; Monocyte% 17.3 % (0-10); NRBC Flagged by Analyzer 0 % (0-5); Neutrophil # 3.01 X10^3/uL (2.7-7.7); Neutrophil % 46.2 % (47-70); Platelet Count 295 K/mm3 (150-450); RBC Distribution Width CV 18.1 % (11.6-14.6); RBC Distribution Width SD 50.9 fl (35.1-43.9); Red Blood Count 3.84 M/mm3 (4.6-6.2); White Blood Count 6.5 K/mm3 (4.4-11.0)
[2022-05-11] MEDS: HYDROmorphone 0.5 MG/0.5 ML SYRINGE IV (05:20)
[2022-05-11] MEDS: 0.9% Saline Lock 10 ML Syringe IV ×2 (05:24→17:47)
[2022-05-11] MEDS: Dicyclomine 10 MG Capsule 20 MG PO ×3 (05:29→16:12)
[2022-05-11 05:38] LABS: Anion Gap 7 (5-15); BUN 11 mg/dL (7-18); BUN/Creat Ratio 12.2 RATIO (10-20); Calcium,Total 8.1 mg/dL (8.5-10.1); Chloride 111 mmol/L (98-107); EST Glomerular Filtration Rate 89 mL/min (>60); Est Glom Filt Rate - Afr Amer 108 mL/min (>60); Estimated Creatinine Clearance 78.11 ml/min; Glucose 109 mg/dL (74-106); Potassium 3.9 mmol/L (3.5-5.1); Sodium Level 141 mmol/L (136-145)
[2022-05-11] MEDS: 0.9% Normal Saline 1,000 ML 125 ML IV ×3 (05:44→20:35)
[2022-05-11] MEDS: Acetaminophen 325 MG Tablet 650 MG PO ×3 (07:50→17:46)
[2022-05-11] MEDS: oxyCODONE 5 MG Tablet PO ×3 (07:50→17:46)
[2022-05-11] MEDS: sulfaSALAzine 500 MG Tablet 1000 MG PO ×4 (07:51→20:35)
[2022-05-11] MEDS: diazePAM 5 MG Tablet PO ×2 (07:51→13:55)
[2022-05-11] MEDS: Hydrocortisone 100 MG/60 ML ENEMA RC (10:40)
--- NOTE | 2022-05-11 10:48 | PCM.PN.HOSP ---
Documented by User: Nickie Yung NP, OIL HEAT TECHNICIAN-C 05/11/22 11:21 Subjective Subjective Patient seen and examined. States he did not sleep last night. Abdominal pain currently improved however reports increased pain after oral intake. Denies fever, chills. Denies nausea, vomiting. Objective Data Objective Data Vital Signs: Vital Signs Temp Pulse Resp BP Pulse Ox O2 Del Method FiO2 97.9 F 69 18 96/68 99 Room Air 21 05/11/22 07:57 05/11/22 07:57 05/11/22 07:57 05/11/22 07:57 05/11/22 07:57 05/11/22 07:57 05/11/22 00:05 Oxygen Delivery Method Room Air Weight: 169 lb 12.095 oz Body Mass Index (BMI) 25.9 Intake & Output: Intake and Output for Last 24 Hours 05/09/22 05/10/22 05/11/22 23:59 23:59 23:59 Intake Total 4851.33 / 4851.33 1087.5 / 1087.5 Balance 4851.33 / 4851.33 1087.5 / 1087.5 Lab / Micro Data Result Diagrams: 05/11/22 03:47 05/11/22 03:47 Labs: Laboratory Results - last 24 hr 05/11/22 03:47: WBC 6.5, RBC 3.84 L, Hgb 8.5 L, Hct 29.7 L, MCV 77.3 L, MCH 22.1 L, MCHC 28.6 L, RDW Std Deviation 50.9 H, RDW Coeff of Miguel 18.1 H, Plt Count 295, MPV 10.1, Immature Gran % (Auto) 0.300, Neut % (Auto) 46.2 L, Lymph % (Auto) 35.4, [place] % (Auto) 17.3 H, Eos % (Auto) 0.6, Baso % (Auto) 0.2, Absolute Neuts (auto) 3.0, Absolute Lymphs (auto) 2.31, Nucleated RBC % 0 05/11/22 03:47: Sodium 141, Potassium 3.9, Chloride 111 H, Carbon Dioxide 23.0, Anion Gap 7, BUN 11, Creatinine 0.90, Estim Creat Clear Calc 78.11, Est GFR (MDRD) Af Amer 108, Est GFR (MDRD) Non-Af 89, BUN/Creatinine Ratio 12.2, Glucose 109 H, Calcium 8.1 L Physical Exam Const alert, oriented x3 and no apparent distress Orientation / Consciousness: awake, oriented to person, oriented to place and oriented to time HEENT normocephalic Mouth: dry mucous membranes Eyes PERRL, EOMs intact bilaterally and conjunctivae normal Neck no lymphadenopathy Resp normal respiratory effort and clear to auscultation bilaterally Cardio regular rate, regular rhythm and no murmurs Peripheral Pulses: pulses 2+ throughout GI normal to inspection, nondistended, normoactive bowel sounds Palpation: tender Extremity normal to inspection Skin no rashes or lesions noted Lesions: no lesions Rashes: no rashes Trauma: no lacerations or abrasions Neuro CN's II-XII intact bilaterally, no focal motor deficits, no sensory deficits noted and deep tendon reflexes 2+ bilaterally Psych mental status grossly normal and affect normal Assessment & Plan Assessment/Plan (1) Ulcerative colitis: PLAN: Plan 1. Ulcerative colitis flare-GI following. On IV Solu-Medrol, hydrocortisone enema, dicyclomine. IV Zosyn. Care and pain regimen. Diet as tolerated. 2. Acute on chronic microcytic anemia, blood loss anemia secondary to #1-treatment per above. Trend CBC. Continue PPI. 3. CAD with history of CABG-aspirin, Plavix temporarily on hold. Continue statin. 4. Hypertension- no longer on regimen. 5. Hyperlipidemia- continue statin. 6. Anxiety- PRN diazepam. 7. BPH- not on regimen. 8. MICKEY-continue outpatient follow up. States he was diagnosed with moderate sleep apnea but machine/setup was never ordered. DVT prophylaxis-SCDs This patient was seen by Nickie Yung NP-Eduardo under the supervision of Dr. May. Time spent examining patient, reviewing data and subsequent management of care: 14 minutes Documented by User: Dr. Ricardo May, 05/11/22 18:29 Objective Data Lab / Micro Data Result Diagrams: 05/11/22 03:47 05/11/22 03:47 Assessment & Plan Assessment/Plan (1) Ulcerative colitis: Charges/Coding Addendum Addendum: Patient was seen and examined today independently of Nickie Yung, patient states he is unable to take Solu-Medrol IV or prednisone, he has consented to try Decadron, I gave him an oral dose today and he had no ill effects from it, I have placed him on IV Decadron. On examination he appeared in good health and spirits. Vital signs as documented. Skin warm and dry and without overt rashes. Neck without JVD, neck was supple, trachea midline, thyroid was normal. Lungs clear bilaterally, normal air movement was noted. Heart exam notable for regular rhythm, normal sounds and absence of murmurs, rubs or gallops. Abdomen unremarkable and without evidence of organomegaly, masses, or abdominal aortic enlargement. Bowel sounds are present, abdomen is not distended. Extremities nonedematous, no cyanosis was noted, no clubbing was noted. Neuro: Cranial nerves II through XII are grossly intact, no focal motor deficits were noted, sensation to light touch and pinprick intact, motor exam 5/5 throughout. Psych: Patient is alert and oriented x3, he does not appear anxious or depressed, he does not appear agitated. Impression: #1 ulcerative colitis flareup-patient's Solu-Medrol will be discontinued, he will be placed on IV Decadron, other care per GI at this time #2 acute on chronic microcytic anemia-secondary to flareup of ulcerative colitis, CBC will be trended #3 coronary artery disease-continue statin, Plavix and aspirin are on hold #4 hyperlipidemia-patient is on a statin #5 obstructive sleep apnea-patient is to follow-up as an outpatient, patient states he was diagnosed with obstructive sleep apnea but his home machine was never set up. I reviewed Nickie Yung's progress note including her medical assessment and plan of care and with the above additions endorse it. Total clinical time spent by myself addressing the patient's medical issues, reviewing the data, and collaborating with patient's care team: 30 minutes Visit Charges Inpatient E&M: 09835 Subs Hosp L2
--- NOTE | 2022-05-11 13:49 | NURSING ---
pt states he has been taking some of his own meds the ones you dont carry here. pt states he has been taking his own lalalda, it he orginial and mesafasaline is the generic type. states he has not taken any of his lalalda today, nor yesterday. informed pt to have someone bring in bottles from home so home med can be verified from pharmacy, pt states that he will.
[2022-05-11] MEDS: dexAMETHasone 4 MG Tablet PO (13:55)
[2022-05-11] MEDS: Menthol/Lanolin/Calamine/Znox 113 GM Tube 1 APPLIC TOPICAL (16:12)
--- NOTE | 2022-05-11 17:39 | PCM.PROGNOTE ---
Subjective Subjective Patient had 4 bowel movements today. He is able to hold enemas. He has been refusing Solumedrol. Objective Data Objective Data Vital Signs: Vital Signs Temp Pulse Resp BP Pulse Ox O2 Del Method FiO2 98.2 F 82 18 96/64 94 Room Air 21 05/11/22 13:48 05/11/22 13:48 05/11/22 13:48 05/11/22 13:48 05/11/22 13:48 05/11/22 13:48 05/11/22 00:05 Oxygen Delivery Method Room Air Weight: 169 lb 12.095 oz Body Mass Index (BMI) 25.9 Intake & Output: Intake and Output for Last 24 Hours 05/09/22 05/10/22 05/11/22 23:59 23:59 23:59 Intake Total 4851.33 / 4851.33 2597.5 / 2597.5 Balance 4851.33 / 4851.33 2597.5 / 2597.5 Lab / Micro Data Result Diagrams: 05/11/22 03:47 05/11/22 03:47 Labs: Laboratory Results - last 24 hr 05/11/22 03:47: WBC 6.5, RBC 3.84 L, Hgb 8.5 L, Hct 29.7 L, MCV 77.3 L, MCH 22.1 L, MCHC 28.6 L, RDW Std Deviation 50.9 H, RDW Coeff of Miguel 18.1 H, Plt Count 295, MPV 10.1, Immature Gran % (Auto) 0.300, Neut % (Auto) 46.2 L, Lymph % (Auto) 35.4, [place] % (Auto) 17.3 H, Eos % (Auto) 0.6, Baso % (Auto) 0.2, Absolute Neuts (auto) 3.0, Absolute Lymphs (auto) 2.31, Nucleated RBC % 0 05/11/22 03:47: Sodium 141, Potassium 3.9, Chloride 111 H, Carbon Dioxide 23.0, Anion Gap 7, BUN 11, Creatinine 0.90, Estim Creat Clear Calc 78.11, Est GFR (MDRD) Af Amer 108, Est GFR (MDRD) Non-Af 89, BUN/Creatinine Ratio 12.2, Glucose 109 H, Calcium 8.1 L Physical Exam Const alert, oriented x3 and no apparent distress Orientation / Consciousness: awake, oriented to person, oriented to place and oriented to time HEENT normocephalic Mouth: dry mucous membranes Eyes PERRL, EOMs intact bilaterally and conjunctivae normal Neck no lymphadenopathy Resp normal respiratory effort and clear to auscultation bilaterally Cardio regular rate, regular rhythm and no murmurs Peripheral Pulses: pulses 2+ throughout GI normal to inspection, nondistended, normoactive bowel sounds Palpation: tender Extremity normal to inspection Skin no rashes or lesions noted Lesions: no lesions Rashes: no rashes Trauma: no lacerations or abrasions Neuro CN's II-XII intact bilaterally, no focal motor deficits, no sensory deficits noted and deep tendon reflexes 2+ bilaterally Psych mental status grossly normal and affect normal Assessment & Plan Assessment/Plan (1) Ulcerative colitis: PLAN: Patient is on sulfasalazine, started Solu-Medrol also on hydrocortisone enemas. He is still having a lot of diarrhea. Therefore I think we should perform a colonoscopy to evaluate his and small bowel. (2) Anemia: PLAN: His hemoglobin as an outpatient was 12 is drifted down all the way to 8.5. With his persistent bleeding per rectum and diarrhea he should undergo an upper and lower endoscopy to evaluate his GI tract for ongoing GI blood loss. He does have a low MCV which is consistent with iron deficiency anemia. Charges/Coding Visit Charges Inpatient E&M: 74670 Subs Hosp L2
[2022-05-11] MEDS: dexAMETHasone 4 MG/ML Vial IV (17:48)
[2022-05-11] MEDS: Bisacodyl 5 MG Tablet 20 MG PO (19:25)
--- NOTE | 2022-05-11 20:00 | NURSING ---
pt wants to wait to start golytely until family brings in poweraid
[2022-05-11] MEDS: Zolpidem Tartrate 5 MG Tablet PO (20:34)
[2022-05-11] MEDS: Electrolyte Solution/Peg's 4000 ML PO (21:36)
[2022-05-12] VITALS (11 sets, daily range): BP systolic 94–124; BP diastolic 61–76; PULSE 67–85; RESP 16–20; TEMP 36.4–36.9; O2SAT 87–100; BMI 25.6
[2022-05-12] MEDS: dexAMETHasone 4 MG/ML Vial IV ×4 (00:24→18:42)
[2022-05-12] MEDS: 0.9% Saline Lock 10 ML Syringe IV ×4 (00:25→23:12)
[2022-05-12] MEDS: 0.9% Normal Saline 1,000 ML 125 ML IV ×3 (05:27→18:42)
[2022-05-12 05:32] LABS: Absolute Lymphocyte Count 1.91 X10^3/uL (0.83-4.51); Absolute Neutrophil Count 2.8 X10^3/uL (2.0-7.7); Basophil# 0.01 X10^3/uL; Basophil% 0.2 % (0-1); Hemoglobin 8.8 g/dL (13.0-16.5); Lymphocyte # 1.91 X10^3/ul (0.83-4.51); Lymphocyte % 38.2 % (19-41); Mean Corp Hgb Conc 29.3 g/dL (32-36); Mean Corpuscular Hgb 22.3 pg (27.0-32.0); Mean Corpuscular Volume 75.9 fL (80-94); Mean Platelet Vol. 9.9 fl (6.2-12.0); Monocyte# 0.16 X10^3/uL; Monocyte% 3.2 % (0-10); NRBC Flagged by Analyzer 0 % (0-5); Neutrophil # 2.82 X10^3/uL (2.7-7.7); Neutrophil % 56.4 % (47-70); Platelet Count 303 K/mm3 (150-450); RBC Distribution Width CV 18.3 % (11.6-14.6); RBC Distribution Width SD 50.8 fl (35.1-43.9); Red Blood Count 3.95 M/mm3 (4.6-6.2)
[2022-05-12 05:40] LABS: International Normalized Ratio 1.3; Prothrombin Time (Protime)PT. 15.5 SECONDS (11.7-14.9)
[2022-05-12 05:41] LABS: Partial Thromboplast Time 30.2 Seconds (24.1-36.2)
[2022-05-12 05:57] LABS: Anion Gap 6 (5-15); BUN 8 mg/dL (7-18); BUN/Creat Ratio 8.1 RATIO (10-20); Chloride 113 mmol/L (98-107); Creatinine, Serum 0.98 mg/dL (0.70-1.30); EST Glomerular Filtration Rate 81 mL/min (>60); Est Glom Filt Rate - Afr Amer 98 mL/min (>60); Estimated Creatinine Clearance 71.73 ml/min; Glucose 153 mg/dL (74-106); Potassium 3.8 mmol/L (3.5-5.1); Sodium Level 142 mmol/L (136-145)
--- NOTE | 2022-05-12 06:00 | EKG12_ITS ---
Test Reason : PRE OP Blood Pressure : / mmHG Vent. Rate : 073 BPM Atrial Rate : 073 BPM P-R Int : 150 ms QRS Dur : 094 ms QT Int : 402 ms P-R-T Axes : 060 -01 075 degrees QTc Int : 442 ms Normal sinus rhythm Nonspecific T wave abnormality Abnormal ECG Confirmed by ZINA LEDESMA, LIVIA ([id number]), supervising editor news reel ROBERTO CHENG ([id number]) on 05/17/2022 8:42:28 AM Referred By: FRAN Confirmed By:LIVIA IZAGUIRRE MD
[2022-05-12] MEDS: diazePAM 5 MG Tablet PO ×2 (08:45→19:45)
[2022-05-12] MEDS: Dicyclomine 10 MG Capsule 20 MG PO ×2 (08:45→12:01)
[2022-05-12] MEDS: sulfaSALAzine 500 MG Tablet 1000 MG PO ×2 (08:45→12:01)
[2022-05-12] MEDS: Hydrocortisone 100 MG/60 ML ENEMA RC (08:45)
--- NOTE | 2022-05-12 15:04 | PCM.PN.HOSP ---
Documented by User: Nickie Yung NP, EXCELSIOR MACHINE TENDER-C 05/12/22 15:21 Subjective Subjective Patient seen and examined. Reports hemorrhoidal discomfort. Describes intermittent abdominal pain. Episode of nausea overnight. Denies further nausea, vomiting. Objective Data Objective Data Vital Signs: Vital Signs Temp Pulse Resp BP Pulse Ox O2 Del Method FiO2 98.2 F 70 18 108/71 96 Room Air 21 05/12/22 14:57 05/12/22 14:57 05/12/22 14:57 05/12/22 14:57 05/12/22 14:57 05/12/22 14:57 05/11/22 00:05 Oxygen Delivery Method Room Air Weight: 168 lb 10.458 oz Body Mass Index (BMI) 25.6 Intake & Output: Intake and Output for Last 24 Hours 05/10/22 05/11/22 05/12/22 23:59 23:59 23:59 Intake Total 4851.33 / 4851.33 3745.00 / 3745.00 4870.42 / 4870.42 Balance 4851.33 / 4851.33 3745.00 / 3745.00 4870.42 / 4870.42 Lab / Micro Data Result Diagrams: 05/12/22 05:20 05/12/22 05:20 Labs: Laboratory Results - last 24 hr 05/12/22 05:20: WBC 5.0, RBC 3.95 L, Hgb 8.8 L, Hct 30.0 L, MCV 75.9 L, MCH 22.3 L, MCHC 29.3 L, RDW Std Deviation 50.8 H, RDW Coeff of Miguel 18.3 H, Plt Count 303, MPV 9.9, Immature Gran % (Auto) 2.000 H, Neut % (Auto) 56.4, Lymph % (Auto) 38.2, [place] % (Auto) 3.2, Eos % (Auto) 0.0, Baso % (Auto) 0.2, Absolute Neuts (auto) 2.8, Absolute Lymphs (auto) 1.91, Nucleated RBC % 0 05/12/22 05:20: Sodium 142, Potassium 3.8, Chloride 113 H, Carbon Dioxide 23.0, Anion Gap 6, BUN 8, Creatinine 0.98, Estim Creat Clear Calc 71.73, Est GFR (MDRD) Af Amer 98, Est GFR (MDRD) Non-Af 81, BUN/Creatinine Ratio 8.1 L, Glucose 153 H, Calcium 8.0 L 05/12/22 05:20: PT 15.5 H, INR 1.3, APTT 30.2 Physical Exam Const alert, oriented x3 and no apparent distress Orientation / Consciousness: awake, oriented to person, oriented to place and oriented to time HEENT normocephalic Mouth: dry mucous membranes Eyes PERRL, EOMs intact bilaterally and conjunctivae normal Neck no lymphadenopathy Resp normal respiratory effort and clear to auscultation bilaterally Cardio regular rate, regular rhythm and no murmurs Peripheral Pulses: pulses 2+ throughout GI normal to inspection, nondistended, normoactive bowel sounds Palpation: tender Extremity normal to inspection Skin no rashes or lesions noted Lesions: no lesions Rashes: no rashes Trauma: no lacerations or abrasions Neuro CN's II-XII intact bilaterally, no focal motor deficits, no sensory deficits noted and deep tendon reflexes 2+ bilaterally Psych mental status grossly normal and affect normal Assessment & Plan Assessment/Plan (1) Ulcerative colitis: PLAN: Plan 1.? Ulcerative colitis flare-GI following.? On IV decadron, hydrocortisone enema, dicyclomine.? IV Zosyn. To undergo EGD/colonoscopy. 2.? Acute on chronic microcytic anemia, blood loss anemia secondary to #1-treatment per above.? Trend CBC. Continue PPI. 3.? CAD with history of CABG-aspirin, Plavix temporarily on hold.? Continue statin. 4.? Hypertension- no longer on regimen. 5.? Hyperlipidemia- continue statin. 6.? Anxiety- PRN diazepam. 7.? BPH- not on regimen. 8.? MICKEY-continue outpatient follow up. States he was diagnosed with moderate sleep apnea but machine/setup was never ordered. DVT prophylaxis-SCDs This patient was seen by ELENA Johnson under the supervision of Dr. May. Time spent examining patient, reviewing data and subsequent management of care: 12 minutes Documented by User: Dr. Ricardo May, 05/12/22 17:25 Objective Data Lab / Micro Data Result Diagrams: 05/12/22 05:20 05/12/22 05:20 Assessment & Plan Assessment/Plan (1) Ulcerative colitis: Charges/Coding Addendum Addendum: Patient was seen and examined independently of Nickie Yung today, he was not able to drink as prep for his colonoscopy-patient states he is to undergo an EGD today instead. Patient has had no ill effects from being on IV Decadron. On examination he appeared in good health and spirits. Vital signs as documented. Skin warm and dry and without overt rashes. Neck without JVD, neck was supple, trachea midline, thyroid was normal. Lungs clear bilaterally, normal air movement was noted. Heart exam notable for regular rhythm, normal sounds and absence of murmurs, rubs or gallops. Abdomen unremarkable and without evidence of organomegaly, masses, or abdominal aortic enlargement. Bowel sounds are present, abdomen is not distended. Extremities nonedematous, no cyanosis was noted, no clubbing was noted. Neuro: Cranial nerves II through XII are grossly intact, no focal motor deficits were noted, sensation to light touch and pinprick intact, motor exam 5/5 throughout. Psych: Patient is alert and oriented x3, he does not appear anxious or depressed, he does not appear agitated. Impression:?#1 ulcerative colitis flareup-patient will remain on IV Decadron, further treatment per gastroenterology #2 acute on chronic microcytic anemia-secondary to flareup of ulcerative colitis, CBC will be trended #3 coronary artery disease-continue statin, Plavix and aspirin are on hold #4 hyperlipidemia-patient is on a statin #5 obstructive sleep apnea-patient is to follow-up as an outpatient, patient states he was diagnosed with obstructive sleep apnea but his home machine was never set up. I have reviewed Nickie Yung's progress note including her medical assessment and plan of care and with the above additions endorse it. Total clinical time spent by myself addressing the patient's medical issues, reviewing the data, and collaborating with patient's care team: 20 minutes Visit Charges Inpatient E&M: 17427 Subs Hosp L2
--- NOTE | 2022-05-12 16:45 | COLBX_PTH ---
PATIENT: KENDRA CUMMINS Jr. LOC: MS3 U#:[id number] AGE/SX: 67/M [place] [facility] [place]: Dr. Ricardo May DO : 1955 BED: 1 DIS: 05/13/2022 SPEC #: [id number] RECD: 05/12/22 18:25 STATUS: JAGDEEP CHAO #: [id number] ELOISA: 05/12/22 16:[address]: Rickie Morales DEPT: SURGICAL PATHOLOGY RECD BY: Kenneth Dow ENTERED: 05/16/22 10:15 SP TYPE: COLON BX OTHR DR: MD Dr. Ricardo Fu DO Dr. Nicholas F Kotsonis, MD Tissues: A - COLON BIOPSY B - Sigmoid colon biopsy C - Rectum, NOS Procedures: Surgery Specimen Level IV HEADER OPERATION: Colonoscopy, EGD ([facility] [place]) PRE-OP DIAGNOSIS: Ulcerative colitis, anemia TISSUE SUBMITTED: A ? Random colon biopsy, B ? Sigmoid polyp biopsy, C ? Rectum biopsy MICROSCOPIC DIAGNOSIS A. Colon, random biopsy: Chronic active colitis pattern of injury with mild activity and focal mucosal ulceration with associated fibrinoid material No evidence of dysplasia. See comment. B. Sigmoid colon polyp, biopsy: Chronic active colitis pattern of injury with ulceration, granulation and focal hyperplastic change. No evidence of dysplasia. C. Rectum, biopsy: Chronic active colitis pattern of injury with mucosal ulceration and associated fibrinoid material. No evidence of dysplasia. Focal hyperplastic change. AM:abran 05/17/2022 COMMENT A. The findings are consistent with inflammatory bowel disease such as ulcerative colitis. Clinical correlation is suggested. Case has been reviewed in consultation with Dr. Ambrosio who concurs with the above diagnosis. IDC:SJ MICROSCOPIC DESCRIPTION Slides are reviewed. GROSS DESCRIPTION A - Received in fixative is one container labeled with the patient's name and designated random colon. The specimen consists of multiple irregular fragments of light lange soft tissue that in aggregate measure 2 x 0.5 x 0.1 cm. The specimen is totally submitted in one cassette. B - Received in fixative is one container labeled with the patient's name and designated sigmoid polyp. The specimen consists of two irregular fragments of light lange soft tissue that in aggregate measure 0.8 x 0.3 x 0.1 cm. The specimen is totally submitted in one cassette. C - Received in fixative is one container labeled with the patient's name and designated biopsy rectum. The specimen consists of multiple irregular fragments of light lange soft tissue that in aggregate measure 0.5 x 0.5 x 0.1 cm. The specimen is totally submitted in one cassette. / SJ:rg 05/16/2022 TC:2 CPT: 67629 x3
--- NOTE | 2022-05-12 17:40 | OP.EGD_ITS ---
Patient Name: Fabricio Miranda Procedure Date: 05/12/2022 4:55 PM Date of : 1955 Age: 67 Procedure: Upper GI endoscopy Indications: Epigastric abdominal pain, Abdominal pain in the left lower quadrant Providers: Rickie Morales DO Medicines: Monitored Anesthesia Care Patient Profile: This is a 67 year old male. Refer to note in patient chart for documentation of history and physical. Patient has symptoms. Complications: No immediate complications. Procedure: Pre-Anesthesia Assessment: - Prior to the procedure, a History and Physical was performed, and patient medications and allergies were reviewed. The risks and benefits of the procedure and the sedation options and risks were discussed with the patient. All questions were answered and informed consent was obtained. Patient identification and proposed procedure were verified by the physician in the pre-procedure area. Mental Status Examination: alert and oriented. Airway Examination: normal oropharyngeal airway and neck mobility. Respiratory Examination: clear to auscultation. CV Examination: normal. Prophylactic Antibiotics: The patient does not require prophylactic antibiotics. Prior Anticoagulants: The patient has taken no previous anticoagulant or antiplatelet agents. After reviewing the risks and benefits, the patient was deemed in satisfactory condition to undergo the procedure. The anesthesia plan was to use moderate sedation / analgesia (conscious sedation). Immediately prior to administration of medications, the patient was re-assessed for adequacy to receive sedatives. The heart rate, respiratory rate, oxygen saturations, blood pressure, adequacy of pulmonary ventilation, and response to care were monitored throughout the procedure. The physical status of the patient was re-assessed after the procedure. After obtaining informed consent, the endoscope was passed under direct vision. Throughout the procedure, the patient's blood pressure, pulse, and oxygen saturations were monitored continuously. The colonoscope was introduced through the mouth, and advanced to the second part of duodenum. The upper GI endoscopy was accomplished without difficulty. The patient tolerated the procedure well. Scope In: 5:11:45 PM Scope Out: 5:13:54 PM Total Procedure Duration Time 0 hours 2 minutes 9 seconds Findings: The examined esophagus was normal. A large amount of a trichobezoar was found in the entire examined stomach. Food (residue) was found in the duodenal bulb. Impression: - Normal esophagus. - A large amount of a trichobezoar in the stomach. - Retained food in the duodenum. - No specimens collected. Recommendation: - Discharge patient to home. - Full liquid diet for 2 days. - Continue present medications. Procedure Code(s): --- Professional --- 25109, Esophagogastroduodenoscopy, flexible, transoral; diagnostic, including collection of specimen(s) by brushing or washing, when performed (separate procedure) CPT copyright 2017 [employer]. All rights reserved. The codes documented in this report are preliminary and upon invoice coder review may be revised to meet current compliance requirements. Rickie Morales DO 05/12/2022 5:39:22 PM This report has been signed electronically. Number of Addenda: 1 Note Initiated On: 05/12/2022 4:55 PM Addendum Number: 1 Addendum Date: 08/16/2022 6:33:15 AM MAC was used as sedation for this procedure. Rickie Morales DO 08/16/2022 6:33:21 AM This report has been signed electronically.
--- NOTE | 2022-05-12 17:40 | OP.CCLET_ITS ---
08/16/2022 Lady Morataya Re : Upper GI endoscopy procedure for Fabricio Miranda Dear Hood This procedure was performed on Thursday, May 12, 2022. My impressions and recommendations are as follows: Impressions : - Normal esophagus. - A large amount of a trichobezoar in the stomach. - Retained food in the duodenum. - No specimens collected. Recommendations : - Discharge patient to home. - Full liquid diet for 2 days. - Continue present medications. My findings are described in the full procedure note, which is enclosed. If I can be of further assistance, please feel free to contact me at . Sincerely, Rickie Morales, 05/12/2022 5:39:22 PM This report has been signed electronically.
--- NOTE | 2022-05-12 17:47 | OP.COLON_ITS ---
Patient Name: Fabricio Miranda Procedure Date: 05/12/2022 5:18 PM Date of : 1955 Age: 67 Procedure: Colonoscopy Indications: Hematochezia, Iron deficiency anemia, Ulcerative colitis Providers: Rickie Morales DO Medicines: Monitored Anesthesia Care Patient Profile: This is a 67 year old male. Refer to note in patient chart for documentation of history and physical. Patient has symptoms. Last Colonoscopy: date unknown. Unable to locate last colonoscopy report. Complications: No immediate complications. Procedure: Pre-Anesthesia Assessment: - Prior to the procedure, a History and Physical was performed, and patient medications and allergies were reviewed. The risks and benefits of the procedure and the sedation options and risks were discussed with the patient. All questions were answered and informed consent was obtained. Patient identification and proposed procedure were verified by the physician in the pre-procedure area. Mental Status Examination: alert and oriented. Airway Examination: normal oropharyngeal airway and neck mobility. Respiratory Examination: clear to auscultation. CV Examination: normal. Prophylactic Antibiotics: The patient does not require prophylactic antibiotics. Prior Anticoagulants: The patient has taken no previous anticoagulant or antiplatelet agents. After reviewing the risks and benefits, the patient was deemed in satisfactory condition to undergo the procedure. The anesthesia plan was to use moderate sedation / analgesia (conscious sedation). Immediately prior to administration of medications, the patient was re-assessed for adequacy to receive sedatives. The heart rate, respiratory rate, oxygen saturations, blood pressure, adequacy of pulmonary ventilation, and response to care were monitored throughout the procedure. The physical status of the patient was re-assessed after the procedure. After I obtained informed consent, the scope was passed under direct vision. Throughout the procedure, the patient's blood pressure, pulse, and oxygen saturations were monitored continuously. The colonoscope was introduced through the anus and advanced to the cecum, identified by appendiceal orifice and ileocecal valve. The colonoscopy was performed without difficulty. The patient tolerated the procedure well. The quality of the bowel preparation was 50 percent obscured. Scope In: 5:18:39 PM Scope Withdrawal Time 0 hours 5 minutes 17 seconds Scope Out: 5:28:01 PM Total Procedure Duration Time 0 hours 9 minutes 22 seconds Findings: The perianal and digital rectal examinations were normal. Inflammation was found in a continuous and circumferential pattern from the rectum to the transverse colon. This was graded as Albrecht Score 3 (severe, with spontaneous bleeding, ulcerations), and when compared to the previous examination, the findings are worsened. Biopsies were taken with a cold forceps for histology. Verification of patient identification for the specimen was done. Estimated blood loss was minimal. A large amount of stool was found in the rectum, in the sigmoid colon, in the descending colon, in the transverse colon, at the hepatic flexure and in the cecum, precluding visualization. Lavage of the area was performed using copious amounts of sterile water, resulting in incomplete clearance with continued poor visualization. A 5 mm polyp was found in the sigmoid colon. The polyp was sessile. The polyp was removed with a cold snare. Resection and retrieval were complete. Verification of patient identification for the specimen was done. Estimated blood loss was minimal. Impression: - Severe (Albrecht Score 3) ulcerative colitis, worsened since the last examination. Biopsied. - Stool in the rectum, in the sigmoid colon, in the descending colon, in the transverse colon, at the hepatic flexure and in the cecum. Recommendation: - Return patient to the floors - Resume previous diet. - Continue present medications. - Repeat colonoscopy is recommended for surveillance. The colonoscopy date will be determined after pathology results from today's exam become available for review. Procedure Code(s): --- Professional --- 12223, Colonoscopy, flexible; with removal of tumor(s), polyp(s), or other lesion(s) by snare technique 25569, 59, Colonoscopy, flexible; with biopsy, single or multiple CPT copyright 2017 [employer]. All rights reserved. The codes documented in this report are preliminary and upon lumber tallier review may be revised to meet current compliance requirements. Rickie Morales DO 05/12/2022 5:47:14 PM This report has been signed electronically. Number of Addenda: 1 Note Initiated On: 05/12/2022 5:18 PM Addendum Number: 1 Addendum Date: 08/16/2022 6:33:28 AM MAC was used as sedation for this procedure. Rickie Morales DO 08/16/2022 6:33:33 AM This report has been signed electronically.
--- NOTE | 2022-05-12 17:47 | OP.CCLET_ITS ---
08/16/2022 Lady Morataya Re : Colonoscopy procedure for Fabricio Miranda Dear Hood This procedure was performed on Thursday, May 12, 2022. My impressions and recommendations are as follows: Impressions : - Severe (Albrecht Score 3) ulcerative colitis, worsened since the last examination. Biopsied. - Stool in the rectum, in the sigmoid colon, in the descending colon, in the transverse colon, at the hepatic flexure and in the cecum. Recommendations : - Return patient to the floors - Resume previous diet. - Continue present medications. - Repeat colonoscopy is recommended for surveillance. The colonoscopy date will be determined after pathology results from today's exam become available for review. My findings are described in the full procedure note, which is enclosed. If I can be of further assistance, please feel free to contact me at . Sincerely, Rickie Morales, 05/12/2022 5:47:14 PM This report has been signed electronically.
[2022-05-12 18:43] LABS: Cholesterol 88 mg/dL (200); Triglycerides 79 mg/dL
[2022-05-12] MEDS: Atorvastatin Calcium 10 MG Tablet PO (22:55)
[2022-05-12] MEDS: Metoclopramide 10 MG/2 ML Vial 5 MG IV (23:12)
[2022-05-13] MEDS: dexAMETHasone 4 MG/ML Vial IV (00:56)
[2022-05-13 00:58] VITALS: BP 112/75; PULSE 68; RESP 18; TEMP 37.2; O2SAT 98
[2022-05-13] MEDS: 0.9% Normal Saline 1,000 ML 125 ML IV (02:23)
[2022-05-13 06:35] LABS: Absolute Lymphocyte Count 2.56 X10^3/uL (0.83-4.51); Absolute Neutrophil Count 7.1 X10^3/uL (2.0-7.7); Basophil# 0.01 X10^3/uL; Basophil% 0.1 % (0-1); Hematocrit 29.7 % (40-54); Hemoglobin 8.7 g/dL (13.0-16.5); Lymphocyte # 2.56 X10^3/ul (0.83-4.51); Lymphocyte % 24.7 % (19-41); Mean Corp Hgb Conc 29.3 g/dL (32-36); Mean Corpuscular Hgb 22.1 pg (27.0-32.0); Mean Corpuscular Volume 75.6 fL (80-94); Mean Platelet Vol. 10.4 fl (6.2-12.0); Monocyte# 0.65 X10^3/uL; Monocyte% 6.3 % (0-10); NRBC Flagged by Analyzer 0 % (0-5); Neutrophil # 7.07 X10^3/uL (2.7-7.7); Platelet Count 352 K/mm3 (150-450); RBC Distribution Width CV 18.4 % (11.6-14.6); RBC Distribution Width SD 50.2 fl (35.1-43.9); Red Blood Count 3.93 M/mm3 (4.6-6.2); White Blood Count 10.4 K/mm3 (4.4-11.0)
[2022-05-13 06:39] VITALS: BP 104/61; PULSE 64; RESP 18; TEMP 36.4; O2SAT 98
[2022-05-13] MEDS: Diphenoxylate/Atrop 1 Tablet PO (06:51)
[2022-05-13 06:56] LABS: Anion Gap 4 (5-15); BUN 8 mg/dL (7-18); BUN/Creat Ratio 8.3 RATIO (10-20); Calcium,Total 8.3 mg/dL (8.5-10.1); Chloride 114 mmol/L (98-107); Creatinine, Serum 0.96 mg/dL (0.70-1.30); EST Glomerular Filtration Rate 83 mL/min (>60); Est Glom Filt Rate - Afr Amer 100 mL/min (>60); Estimated Creatinine Clearance 73.23 ml/min; Glucose 133 mg/dL (74-106); Potassium 3.5 mmol/L (3.5-5.1); Sodium Level 144 mmol/L (136-145)
[2022-05-13 06:58] VITALS: O2SAT 92
[2022-05-13] MEDS: HYDROmorphone 0.5 MG/0.5 ML SYRINGE IV (07:48)
[2022-05-13] MEDS: 0.9% Saline Lock 10 ML Syringe IV (07:48)
[2022-05-13] MEDS: Hydrocortisone 100 MG/60 ML ENEMA RC (07:56)
[2022-05-13] MEDS: diazePAM 5 MG Tablet PO (09:36)
[2022-05-13 09:51] LABS: Bedside Glucose 214 mg/dL (74-106)
[2022-05-13] MEDS: Sodium Ferric Gluconat 250 MG in 0.9% Normal Saline 250 ML 135 MG IV (10:37)
--- NOTE | 2022-05-13 10:39 | DCINST_ITS ---
Discharge Instructions Diet Discharge Diet: Light diet - advance as tolerated Activity Discharge Activity: Return to Normal Activity Dressing / Incision Call your doctor if you observe: Shortness of breath, Dizziness, Chest pain and Uncontrolled pain Follow Up Care Test Results: Test results from this visit will be discussed in further detail at your follow- up appointment, if applicable. Discharge Plan Admission Admit Date/Time: 05/10/22 02:55 Primary Reason for Your Visit: Ulcerative colitis Attending Provider: Ricardo May Primary Care Provider: JILLIAN GONZALEZ Consulting Providers: Ava Ledezma ; Sylvester Duff Discharge Orders/Prescriptions Prescriptions: New sulfasalazine 500 mg Tablet 1,000 mg PO 4X/DAYCM 30 Days Qty: 240 0RF dicyclomine 10 mg Capsule 20 mg PO TIDAC 30 Days Qty: 180 0RF folic acid 1 mg tablet 1 mg PO DAILY Qty: 30 0RF dexamethasone [Decadron] 4 mg tablet 4 mg PO TID Qty: 90 0RF Continued aspirin 81 mg tablet,delayed release (DR/EC) 81 mg PO DAILY clopidogrel 75 mg tablet 75 mg PO DAILY diazepam 5 mg tablet 5 mg PO .QID PRN (Reason: Anxiety) indomethacin 50 mg capsule 50 mg PO BID PRN (Reason: Gout) Rx Instructions: administer with food or milk omeprazole 40 mg capsule,delayed release(DR/EC) 40 mg PO DAILY PRN (Reason: STOMACH ACID) rosuvastatin 5 mg tablet 5 mg PO DAILY cholecalciferol (vitamin D3) 25 mcg (1,000 unit) capsule 25 mcg PO DAILY zolpidem 10 mg tablet 10 mg PO QHS diphenoxylate-atropine [Lomotil] 2.5-0.025 mg tablet 1 tab PO BID PRN (Reason: diarrhea) Qty: 60 1RF hydrocortisone 100 mg/60 mL enema 100 mg ME QHS Discontinued mesalamine [Lialda] 1.2 gram tablet,delayed release (DR/EC) 2.4 g PO BID Referrals / Follow Up: JILLIAN GONZALEZ [Other] - In 1 Week (Follow up with PCP in one week) Rickie Morales DO [STAFF PHYSICIAN] - Within 2 Weeks (May see MANAGER MANUFACTURING) Disposition Disposition (needs filled in before D/C Order can be placed): Home, Self Care
[2022-05-13 10:40] LABS: Erythrocyte Sedimentation Rate 16 mm/hr (0-20)
--- NOTE | 2022-05-13 10:57 | DS.PCM_ITS ---
Documented by User: Nickie Yung NP, AGED OR DISABLED CARER-C 05/13/22 11:18 Providers Date of Admission: 05/10/22 Date of Discharge: 05/13/22 Primary Care Physician: JILLIAN GONZALEZ Consultations 05/10/22 05:08 Consult: Gastroenterology Routine Consulting Provider: Alok Isaac Reason for Consult: Acute UC EMERGENT Consult: No MD Notified: Yes Date Notified: 05/10/22 Time Notified: 02:56 Method of Notification: ED Physician Initiated Reason For Visit: ACUTE UC Diagnosis Discharge Diagnosis (1) Ulcerative colitis: Status: Acute Code(s): K51.90 - Ulcerative colitis, unspecified, without complications Medications at Discharge Home Medications aspirin 81 mg tablet,delayed release 81 mg PO DAILY 04/18/22 cholecalciferol (vitamin D3) 25 mcg (1,000 unit) capsule 25 mcg PO DAILY Check with primary doctor 04/18/22 clopidogrel 75 mg tablet 75 mg PO DAILY 04/18/22 diazepam 5 mg tablet 5 mg PO .QID PRN Anxiety 04/18/22 indomethacin 50 mg capsule 50 mg PO BID PRN Gout 04/18/22 omeprazole 40 mg capsule,delayed release 40 mg PO DAILY PRN STOMACH ACID 04/18/22 rosuvastatin 5 mg tablet 5 mg PO DAILY Check with primary doctor 04/18/22 zolpidem 10 mg tablet 10 mg PO QHS Check with primary doctor 04/18/22 diphenoxylate-atropine 2.5 mg-0.025 mg tablet (Lomotil) 1 tab PO BID PRN diarrhea #60 tabs 05/05/22 hydrocortisone 100 mg/60 mL enema 100 mg [place] QHS Check with primary doctor 05/10/22 dexamethasone 4 mg tablet (Decadron) 4 mg PO TID #90 tabs 05/13/22 dicyclomine 10 mg capsule 20 mg PO TIDAC 30 days #180 caps 05/13/22 folic acid 1 mg tablet 1 mg PO DAILY #30 tabs 05/13/22 sulfasalazine 500 mg tablet 1,000 mg PO 4X/DAYCM 30 days #240 tabs 05/13/22 Hospital Course Operations None Procedures Colonoscopy and EGD Summary of Care Provided Hospital Course: Patient is a 67-year-old male admitted 05/10/2022 due to abdominal pain. 1.? Ulcerative colitis flare-follows with GI.? Patient underwent EGD/colonoscopy. Colonoscopy demonstrated severe ulcerative colitis, worsened since last exam. Plan for sulfasalazine, folic acid, Bentyl, hydrocortisone enema and oral Decadron at discharge. Follow-up with GI in 2 weeks. 2.? Acute on chronic microcytic anemia, blood loss anemia secondary to #1- treatment per above.? Hemoglobin stable. Continue PPI. 3.? CAD with history of CABG-aspirin, Plavix, statin. 4.? Hypertension- no longer on regimen. 5.? Hyperlipidemia- continue statin. 6.? Anxiety- PRN diazepam. 7.? BPH- not on regimen. 8.? MICKEY-continue outpatient follow up. States he was diagnosed with moderate sleep apnea but machine/setup was never ordered. Physical Exam Const alert, oriented x3 and no apparent distress Orientation / Consciousness: awake, oriented to person, oriented to place and oriented to time HEENT normocephalic Mouth: dry mucous membranes Eyes PERRL, EOMs intact bilaterally and conjunctivae normal Neck no lymphadenopathy Resp normal respiratory effort and clear to auscultation bilaterally Cardio regular rate, regular rhythm and no murmurs Peripheral Pulses: pulses 2+ throughout GI normal to inspection, nondistended, normoactive bowel sounds Palpation: tender Extremity normal to inspection Skin no rashes or lesions noted Lesions: no lesions Rashes: no rashes Trauma: no lacerations or abrasions Neuro CN's II-XII intact bilaterally, no focal motor deficits, no sensory deficits noted and deep tendon reflexes 2+ bilaterally Psych mental status grossly normal and affect normal Patient seen and examined prior to discharge. Physical assessment as noted above. Patient is stable for discharge with follow up recommendations as noted above. This patient was seen by ELENA Johnson under the supervision of Dr. May. Time spent examining patient, reviewing data and subsequent management of care: 26 minutes Weight / BMI Weight Weight: 168 lb 6.931 oz Body Mass Index (BMI) 25.6 ABG / Lab / Microbiology Data Result Diagrams: 05/13/22 05:50 05/13/22 05:50 Laboratory: Laboratory Results - last 24 hr 05/12/22 05:20: Triglycerides 79, Cholesterol 88 05/13/22 05:50: WBC 10.4, RBC 3.93 L, Hgb 8.7 L, Hct 29.7 L, MCV 75.6 L, MCH 22.1 L, MCHC 29.3 L, RDW Std Deviation 50.2 H, RDW Coeff of Miguel 18.4 H, Plt Count 352, MPV 10.4, Immature Gran % (Auto) 0.900, Neut % (Auto) 68.0, Lymph % (Auto) 24.7, [place] % (Auto) 6.3, Eos % (Auto) 0.0, Baso % (Auto) 0.1, Absolute Neuts (auto) 7.1, Absolute Lymphs (auto) 2.56, Nucleated RBC % 0 05/13/22 05:50: Sodium 144, Potassium 3.5, Chloride 114 H, Carbon Dioxide 26.0, Anion Gap 4 L, BUN 8, Creatinine 0.96, Estim Creat Clear Calc 73.23, Est GFR (MDRD) Af Amer 100, Est GFR (MDRD) Non-Af 83, BUN/Creatinine Ratio 8.3 L, Glucose 133 H, Calcium 8.3 L 05/13/22 09:45: POC Glucose 214 H 05/13/22 10:15: ESR 16 D/C Instructions Discharge Diet: Light diet - advance as tolerated Call your doctor if you observe: Shortness of breath, Dizziness, Chest pain and Uncontrolled pain Meaningful Use Info Meaningful Use Diagnoses (Choose all that apply): None applicable Discharge Plan Admission Admit Date/Time: 05/10/22 02:55 Primary Reason for Your Visit: Ulcerative colitis Attending Provider: Ricardo May Primary Care Provider: JILLIAN GONZALEZ Consulting Providers: Ava Ledezma ; Sylvester Duff Discharge Orders/Prescriptions Prescriptions: New sulfasalazine 500 mg Tablet 1,000 mg PO 4X/DAYCM 30 Days Qty: 240 0RF dicyclomine 10 mg Capsule 20 mg PO TIDAC 30 Days Qty: 180 0RF folic acid 1 mg tablet 1 mg PO DAILY Qty: 30 0RF dexamethasone [Decadron] 4 mg tablet 4 mg PO TID Qty: 90 0RF Continued aspirin 81 mg tablet,delayed release (DR/EC) 81 mg PO DAILY clopidogrel 75 mg tablet 75 mg PO DAILY diazepam 5 mg tablet 5 mg PO .QID PRN (Reason: Anxiety) indomethacin 50 mg capsule 50 mg PO BID PRN (Reason: Gout) Rx Instructions: administer with food or milk omeprazole 40 mg capsule,delayed release(DR/EC) 40 mg PO DAILY PRN (Reason: STOMACH ACID) rosuvastatin 5 mg tablet 5 mg PO DAILY cholecalciferol (vitamin D3) 25 mcg (1,000 unit) capsule 25 mcg PO DAILY zolpidem 10 mg tablet 10 mg PO QHS diphenoxylate-atropine [Lomotil] 2.5-0.025 mg tablet 1 tab PO BID PRN (Reason: diarrhea) Qty: 60 1RF hydrocortisone 100 mg/60 mL enema 100 mg NH QHS Discontinued mesalamine [Lialda] 1.2 gram tablet,delayed release (DR/EC) 2.4 g PO BID Referrals / Follow Up: JILLIAN GONZALEZ [Other] - In 1 Week (Follow up with PCP in one week) Friend,DO Rickie [STAFF PHYSICIAN] - Within 2 Weeks (May see AGED OR DISABLED CARER) Disposition Disposition (needs filled in before D/C Order can be placed): Home, Self Care Documented by User: Dr. Ricardo May DO 05/13/22 17:50 Providers Date of Admission: 05/10/22 Reason For Visit: ACUTE UC Diagnosis Discharge Diagnosis (1) Ulcerative colitis: Status: Acute Code(s): K51.90 - Ulcerative colitis, unspecified, without complications Medications at Discharge Home Medications aspirin 81 mg tablet,delayed release 81 mg PO DAILY 04/18/22 cholecalciferol (vitamin D3) 25 mcg (1,000 unit) capsule 25 mcg PO DAILY Check with primary doctor 04/18/22 clopidogrel 75 mg tablet 75 mg PO DAILY 04/18/22 diazepam 5 mg tablet 5 mg PO .QID PRN Anxiety 04/18/22 indomethacin 50 mg capsule 50 mg PO BID PRN Gout 04/18/22 omeprazole 40 mg capsule,delayed release 40 mg PO DAILY PRN STOMACH ACID 04/18/22 rosuvastatin 5 mg tablet 5 mg PO DAILY Check with primary doctor 04/18/22 zolpidem 10 mg tablet 10 mg PO QHS Check with primary doctor 04/18/22 diphenoxylate-atropine 2.5 mg-0.025 mg tablet (Lomotil) 1 tab PO BID PRN diarrhea #60 tabs 05/05/22 hydrocortisone 100 mg/60 mL enema 100 mg NH QHS Check with primary doctor 05/10/22 dexamethasone 4 mg tablet (Decadron) 4 mg PO TID #90 tabs 05/13/22 dicyclomine 10 mg capsule 20 mg PO TIDAC 30 days #180 caps 05/13/22 folic acid 1 mg tablet 1 mg PO DAILY #30 tabs 05/13/22 sulfasalazine 500 mg tablet 1,000 mg PO 4X/DAYCM 30 days #240 tabs 05/13/22 ABG / Lab / Microbiology Data Result Diagrams: 05/13/22 05:50 05/13/22 05:50 Discharge Plan Admission Admit Date/Time: 05/10/22 02:55 Primary Reason for Your Visit: Ulcerative colitis Attending Provider: Ricardo May Primary Care Provider: JILLIAN GONZLAEZ Consulting Providers: Ava Ledezma ; Sylvester Duff Discharge Orders/Prescriptions Prescriptions: New sulfasalazine 500 mg Tablet 1,000 mg PO 4X/DAYCM 30 Days Qty: 240 0RF dicyclomine 10 mg Capsule 20 mg PO TIDAC 30 Days Qty: 180 0RF folic acid 1 mg tablet 1 mg PO DAILY Qty: 30 0RF dexamethasone [Decadron] 4 mg tablet 4 mg PO TID Qty: 90 0RF Continued aspirin 81 mg tablet,delayed release (DR/EC) 81 mg PO DAILY clopidogrel 75 mg tablet 75 mg PO DAILY diazepam 5 mg tablet 5 mg PO .QID PRN (Reason: Anxiety) indomethacin 50 mg capsule 50 mg PO BID PRN (Reason: Gout) Rx Instructions: administer with food or milk omeprazole 40 mg capsule,delayed release(DR/EC) 40 mg PO DAILY PRN (Reason: STOMACH ACID) rosuvastatin 5 mg tablet 5 mg PO DAILY cholecalciferol (vitamin D3) 25 mcg (1,000 unit) capsule 25 mcg PO DAILY zolpidem 10 mg tablet 10 mg PO QHS diphenoxylate-atropine [Lomotil] 2.5-0.025 mg tablet 1 tab PO BID PRN (Reason: diarrhea) Qty: 60 1RF hydrocortisone 100 mg/60 mL enema 100 mg NH QHS Discontinued mesalamine [Lialda] 1.2 gram tablet,delayed release (DR/EC) 2.4 g PO BID Referrals / Follow Up: JILLIAN GONZALEZ [Other] - In 1 Week (Follow up with PCP in one week) Friend,DO Rickie [STAFF PHYSICIAN] - Within 2 Weeks (May see AGED OR DISABLED CARER) Disposition Disposition (needs filled in before D/C Order can be placed): Home, Self Care Charges/Coding Addendum Addendum: Patient was seen and examined today independently of Nickie Yung, he appears stable for discharge at this time, I discussed his medical care with gastroenterology today. Patient stated to this examiner that he was able to tolerate Decadron but he needed to take Ativan before being given the Decadron. Patient is to follow-up as an outpatient with gastroenterology. On examination he appeared in good health and spirits. Vital signs as documented. Skin warm and dry and without overt rashes. Neck without JVD, neck was supple, trachea midline, thyroid was normal. Lungs clear bilaterally, normal air movement was noted. Heart exam notable for regular rhythm, normal sounds and absence of murmurs, rubs or gallops. Abdomen unremarkable and without evidence of organomegaly, masses, or abdominal aortic enlargement. Bowel sounds are present, abdomen is not distended. Extremities nonedematous, no cyanosis was noted, no clubbing was noted. Neuro: Cranial nerves II through XII are grossly intact, no focal motor deficits were noted, sensation to light touch and pinprick intact, motor exam 5/5 throughout. Psych: Patient is alert and oriented x3, he does not appear anxious or depressed, he does not appear agitated. Impression:#1 ulcerative colitis flareup #2 acute on chronic microcytic anemia-secondary to flareup of ulcerative colitis #3 coronary artery disease #4 hyperlipidemia #5 obstructive sleep apnea On 05/13/2022, patient was seen and examined and felt to be in stable condition for discharge home. I have reviewed Nickie Yung's discharge summary including her medical assessment and plan of care and endorse it with the above additions. Total clinical time spent by myself addressing the patient's medical issues, reviewing the data, and collaborating with patient's care team: 25 minutes Visit Charges Inpatient E&M: 10384 Disch Hosp
[2022-05-13 10:59] LABS: Lactic Acid 5.8 mmol/L (0.4-1.9)
[2022-05-13 12:30] VITALS: BP 98/63; PULSE 48; RESP 16; TEMP 36.4; O2SAT 94
[2022-05-13] MEDS: oxyCODONE 5 MG Tablet PO (13:38)
[2022-05-13 14:32] LABS: Reflex Lactate? Y
[2022-05-14 09:07] LABS: HEPATITIS B SURFACE AG Negative (Negative); Hep C Antibodies <0.1 s/co ratio (0.0-0.9); Hepatitis A IgM Antibody Negative (Negative); Hepatitis B Core AB IgM Negative (Negative)
[2022-05-14 10:25] LABS: LDL, Direct 120295 49 mg/dL (0-99)
[2022-05-17 15:08] LABS: QNTFERON TB Mitogen Value > 10.00 IU/mL (.); QNTFERON TB Nil Value 0.18 IU/mL (.); QNTFERON TB1+ Ag Value 0 IU/mL (.); QNTFERON TB2+ Ag Value 0 IU/mL (.)
[2022-05-17 20:43] LABS: QNTIFERON TB Positive Criteria Negative (Negative)
== END 2022-05-13 14:10 | disposition home or self-care (01) | DRG 386 ==
LOC: ED 03:15 → MS3 03:28
PROVIDERS: Anesthesiology; Family Medicine; Internal Medicine Gastroenterology; Nurse Practitioner Family; Admitting Provider Family Medicine; Emergency Provider Emergency Medicine; Visit Provider Internal Medicine
PROC: 0DJD8ZZ Inspection of Lower Intestinal Tract, Via Natural or Artificial Opening Endoscopic (ICD-10-PCS; CPT 45378; principal; 2022-05-12 16:40)
DX: K51.90 Ulcerative colitis, unspecified, without complications (principal); D62 Acute posthemorrhagic anemia; E87.2 Acidosis; T18.2XXA Foreign body in stomach, initial encounter; E78.5 Hyperlipidemia, unspecified; I10 Essential (primary) hypertension; I25.10 Atherosclerotic heart disease of native coronary artery without angina pectoris; G47.33 Obstructive sleep apnea (adult) (pediatric); K21.9 Gastro-esophageal reflux disease without esophagitis; I25.2 Old myocardial infarction; K63.5 Polyp of colon; N40.0 Benign prostatic hyperplasia without lower urinary tract symptoms; Z79.82 Long term (current) use of aspirin; Z79.02 Long term (current) use of antithrombotics/antiplatelets; Z79.899 Other long term (current) drug therapy; Z87.891 Personal history of nicotine dependence; Z90.49 Acquired absence of other specified parts of digestive tract; Z95.1 Presence of aortocoronary bypass graft
CPT/HCPCS: 36415; 80048; 80053; 80074; 81001; 82465; 82962; 83605; 83690; 83721; 84478; 85025; 85610; 85652; 85730; 86140; 86480; 88305; 93005; 94762; 97803; 99284; J7030; J7050; A4216; J2405; J2916

== ENCOUNTER → 2022-05-19 | Outpatient (CLI) | payer OTHER, MEDICARE, SELFPAY ==
[2022-05-19 10:16] LABS: Erythrocyte Sedimentation Rate 41 mm/hr (0-20)
[2022-05-19 10:17] LABS: Absolute Lymphocyte Count 3.75 X10^3/uL (0.83-4.51); Absolute Neutrophil Count 8.3 X10^3/uL (2.0-7.7); Basophil# 0.03 X10^3/uL; Basophil% 0.2 % (0-1); Eosinophil# 0.28 X10^3/uL; Eosinophils% 1.9 % (0-5); Hematocrit 31.6 % (40-54); Hemoglobin 9.6 g/dL (13.0-16.5); Lymphocyte # 3.75 X10^3/ul (0.83-4.51); Lymphocyte % 25.9 % (19-41); Mean Corp Hgb Conc 30.4 g/dL (32-36); Mean Corpuscular Volume 75.6 fL (80-94); Mean Platelet Vol. 9.7 fl (6.2-12.0); Monocyte# 2.01 X10^3/uL; Monocyte% 13.9 % (0-10); NRBC Flagged by Analyzer 0 % (0-5); Neutrophil # 8.32 X10^3/uL (2.7-7.7); Neutrophil % 57.5 % (47-70); POSITIVE DIFFERENTIAL YES; POSITIVE MORPHOLOGY YES; Platelet Count 392 K/mm3 (150-450); RBC Distribution Width CV 19.8 % (11.6-14.6); RBC Distribution Width SD 50.4 fl (35.1-43.9); Red Blood Count 4.18 M/mm3 (4.6-6.2); White Blood Count 14.5 K/mm3 (4.4-11.0)
[2022-05-19 10:23] LABS: Differential Indicated SCAN CRITERIA MET
[2022-05-19 10:48] LABS: ALB/GLOB Ratio 0.7 RATIO (0.9-2.4); AST(SGOT) 13 U/L (15-37); Alanine Aminotransfer ALT/SGPT 17 U/L (16-61); Albumin, Serum 2.9 g/dL (3.2-5.0); Alkaline Phosphatase 76 U/L (45-117); Anion Gap 6 (5-15); BUN 13 mg/dL (7-18); BUN/Creat Ratio 12.3 RATIO (10-20); Calcium,Total 9.1 mg/dL (8.5-10.1); Chloride 105 mmol/L (98-107); Creatinine, Serum 1.06 mg/dL (0.70-1.30); EST Glomerular Filtration Rate 74 mL/min (>60); Est Glom Filt Rate - Afr Amer 90 mL/min (>60); Globulin 4.3 g/dL (2.2-4.2); Glucose 106 mg/dL (74-106); Potassium 3.5 mmol/L (3.5-5.1); Protein, Total 7.2 g/dL (6.4-8.2); Sodium Level 139 mmol/L (136-145)
[2022-05-19 11:14] LABS: Anisocytosis 1+; Hypochromasia 1+; Platelet Estimate ADEQUATE (ADEQ)
[2022-05-24 07:14] LABS: Pathologist Review Reviewed
== END | disposition home or self-care (01) ==
LOC: LAB 09:22
PROVIDERS: PCP Nurse Practitioner Family; Visit Provider Internal Medicine Gastroenterology
DX: K51.90 Ulcerative colitis, unspecified, without complications (principal); D64.9 Anemia, unspecified
CPT/HCPCS: 36415; 80053; 85025; 85652; 86140

== ENCOUNTER → 2022-08-03 | Outpatient (CLI) | payer OTHER, MEDICARE, SELFPAY | END | disposition home or self-care (01) | LOC: LAB 14:31 | PROVIDERS: PCP Nurse Practitioner Family; Referring Provider Internal Medicine Gastroenterology; Visit Provider Internal Medicine Gastroenterology | DX: K51.90 Ulcerative colitis, unspecified, without complications (principal) | CPT/HCPCS: 87493; 87506 ==